=== PATIENT | male | born 1960 | race African-American/Black ===

== ENCOUNTER → 2016-12-28 | Outpatient (CLI) | payer BC ==
[2016-12-28 10:43] LABS: EKG EKG PERFORMED
[2016-12-28 11:10] LABS: Basophils % (A) 1 %; CH 29.3; CHCM 33.8; Eosinophils # (A) 0.1 k/uL (0-0.7); Eosinophils % (A) 1 %; HCT 49.8 % (39.0-53.0); HDW 2.49; HGB 16.2 gm/dL (13.0-17.5); Luc % (Auto) 2; Lymphocytes # (A) 2.6 k/uL (1.0-4.8); Lymphocytes % (A) 44 %; MCH 28.3 pg (25.0-35.0); MCHC 32.6 g/dL (31.0-37.0); Mean Platelet Volume 8.4; Monocytes # (A) 0.3 k/uL (0-1.0); Monocytes % (A) 6 %; Neutrophils # (A) 2.9 k/uL (1.3-7.7); Neutrophils % (A) 48 %; RBC 5.73 m/uL (4.30-5.90); RDW 12.6 % (11.5-15.5); WBC 6.1 k/uL (3.8-10.6); WBC (Perox) 6.03
[2016-12-28 11:15] LABS: Anion Gap 13 mmol/L; Carbon Dioxide 27 mmol/L (22-30); Chloride 106 mmol/L (98-107); Potassium 4.3 mmol/L (3.5-5.1); Sodium 146 mmol/L (137-145)
== END | disposition home or self-care (01) ==
LOC: LABPAT 10:26
PROVIDERS: ATTEND Orthopaedic Surgery
DX: Z01.810 Encounter for preprocedural cardiovascular examination (principal); M75.42 Impingement syndrome of left shoulder
CPT/HCPCS: 80051; 85025; 93005

== ENCOUNTER 2016-12-31 05:59 | Day surgery (SDC) | payer BC ==
[2016-12-28 09:55] VITALS: BMI 29.4
--- NOTE | 2016-12-30 16:36 | HP ---
DATE OF ADMISSION: 12/31/2016 Samy Kim is a 56-year-old patient seen with progressive left shoulder pain. After having treatment options discussed, he elected to proceed with left shoulder arthroscopy. Consent regarding the procedure was obtained. PAST MEDICAL HISTORY: 1. Hss-hdcpees-[id number] diabetes. 2. Gastroesophageal reflux disease. 3. Hypercholesterolemia. PAST SURGICAL HISTORY: Knee arthroscopy. DAILY MEDICATIONS: 1. Actos. 2. Glipizide. 3. Lipitor. 4. Nexium. ALLERGIES: NONE. SOCIAL HISTORY: Patient denies tobacco use. PHYSICAL EVALUATION OF THE LEFT SHOULDER: Flexion is 90 degrees, abduction 70 degrees, external rotation 25 degrees with some weakness. There is tenderness along the anterolateral acromion and rotator cuff insertion site. Impingement is positive at 70 degrees. Distal neurovascular exam is intact. Radiographs of the left shoulder revealed a type II anterior acromion. An MRI of the left shoulder revealed impingement with possible labral tear as well as osteoarthritic changes. IMPRESSION: Left shoulder impingement with labral tear, possible rotator cuff tear. PLAN: Left shoulder arthroscopy with subacromial decompression, possible arthroscopic rotator cuff repair and debridement.
[~2016-12-31 05:59] MED LIST: DEXAMETHASONE SOD PHOSPHATE 10 MG/ML 1 ML VIAL IV ONE; HYDROmorphone 1 MG/ML 1 ML SYRINGE IVP PRN; LACTATED RINGERS 1,000 ML IV SCH; MIDAZOLAM 2 MG/2 ML VIAL IV PRN; ONDANSETRON 4 MG/2 ML VIAL IVP ONE; ceFAZolin 2 GM in SODIUM CHLORIDE 0.9% 100 ML IVPB ONE
[2016-12-31] MEDS ORDERED: LIDOCAINE 1% 20 ML VIAL (10MG/ML) FOR IV START INTRADERMA ONE (06:31)
[2016-12-31 06:55] LABS: Glucose,Whole Blood 144 mg/dL (75-99)
[2016-12-31] MEDS ORDERED: ROCURONIUM BROMIDE 10 MG/ML 10 ML VIAL IV ONE (07:23)
[2016-12-31] MEDS ORDERED: NEOSTIGMINE 1 MG/ML 10 ML VIAL ONE (07:23)
[2016-12-31] MEDS ORDERED: fentaNYL (PF) 50 MCG/ML 2 ML AMP ONE (07:23)
[2016-12-31] MEDS ORDERED: MIDAZOLAM 2 MG/2 ML VIAL ONE (07:23)
[2016-12-31] MEDS ORDERED: PROPOFOL 10 MG/ML 20 ML VIAL IV ONE (07:23)
[2016-12-31] MEDS ORDERED: GLYCOPYRROLATE 0.2 MG/ML 2 ML VIAL ONE (07:23)
[2016-12-31] MEDS ORDERED: LIDOCAINE 1% INJ 10MG/ML (20 ML MDV) ONE (07:23)
[2016-12-31] MEDS ORDERED: LACTATED RINGERS 1,000 ML IV ONE ×2 (08:45→09:10)
[2016-12-31 09:06] VITALS: TEMP 97.4
--- NOTE | 2016-12-31 09:13 | P.OP ---
Date of Procedure: 12/31/16 Preoperative Diagnosis: Left shoulder impingement Postoperative Diagnosis: 1. Left shoulder rotator cuff tear 2. Left shoulder impingement 3. Left shoulder partial biceps tendon tear 4. Left shoulder superficial labral tear Procedure(s) Performed: 1. Left shoulder arthroscopic rotator cuff repair 2. Left shoulder arthroscopic subacromial decompression 3. Left shoulder arthroscopic biceps tenotomy 4. Left shoulder arthroscopic debridement labral tear Implants: 1-valeris peek anchor Anesthesia: GETA, regional (Interscalene block) Surgeon: Seun Tesfaye Retail Selling Specialist #1: Michael Otero Estimated Blood Loss (ml): 10 Pathology: none sent Condition: stable Disposition: PACU Indications for Procedure: 56-year-old patient seen with progressive left shoulder pain. After having treatment options discussed, he elected to proceed with left shoulder arthroscopy. Operative Findings: See description of procedure Description of Procedure: Patient underwent a shoulder block by department of anesthesia. The patient was then taken to the operative suite. The patient underwent a general anesthetic by the department of anesthesia. The patient was placed into a lateral position and secured. There was appropriate padding of the bony prominence. Left shoulder was then prepped and draped in normal sterile orthopedic fashion. We placed the extremity in 10 pounds of longitudinal traction. A posterior incision was now made for a posterior working portal site. The trocar and cannula were inserted into the glenohumeral joint. Arthroscopy was initiated. Spinal needle was now inserted anteriorly, to ascertain the anterior working portal site. An incision was now made in that area, a trocar was inserted followed by a probe. There was partial tearing long head biceps tendon with some hyperemia present. Superficial tearing of the superior and anterior labrum. Mild grade 1 chondromalacia changes of the glenoid with no osteochondral tears present. No loose bodies. An arthroscopic biceps tenotomy was performed. I debrided the superficial labral tear down to stable tissue. The residual labrum was probed and found to be stable. Instruments were now removed from glenohumeral joint. Utilizing the posterior working portal site, the trocar and cannula were inserted into the subacromial space. Arthroscopy initiated. I made an incision 2 fingerbreadths lateral to the acromion. I introduced my trocar followed by my ArthroCare ablator. I now began ablating thick subacromial bursal tissue, which exposed the undersurface of the anterior acromion. This was diminished subacromial space. There was a very prominent anterior acromion. A motorized bur was introduced and a subacromial decompression was performed. I also excised some osteophytes off the inferior aspect of the distal clavicle. The AC joint was visualized and noted to be moderately arthritic. I did not think enough toward a Juan Luis procedure. I turned my attention towards rotator cuff tendon. There was some significant partial tearing along the distal supraspinatus area. Once I debrided that down to stable tissue there was a perforation. I now debrided the margins getting down to stable tendon tissue. I ended up with about a 1.5 cm defect. Margins were stable. I abraded the footprint with a motorized bur. I passed 2 everted mattress sutures through good bites of rotator cuff tendon along with one single suture loop posteriorly. I now repaired the tendon with one single 4.5 mm peek anchor compressing the tendon along the bone very nicely. The residual suture limbs were clipped. The repair was probed and found to be stable. I injected 1 mL Allogen into the glenohumeral joint. Instruments now removed from the portal sites. All portal sites were approximated with nylon suture. Sterile dressings were applied followed by a shoulder immobilizer. Michael FLANAGAN assisted with the procedure. The patient was awakened, transferred to a bed, and taken to recovery in stable condition.
[2016-12-31 09:42] LABS: Glucose,Whole Blood 149 mg/dL (75-99)
[2016-12-31 10:16] LABS: Glucose,Whole Blood 154 mg/dL (75-99)
[2016-12-31 10:22] VITALS: BP 118/76; PULSE 74; RESP 16
== END 2016-12-31 10:57 | disposition home or self-care (01) ==
LOC: OR 05:59
PROVIDERS: ATTEND Orthopaedic Surgery
DX: M75.42 Impingement syndrome of left shoulder (principal); S46.112A Strain of muscle, fascia and tendon of long head of biceps, left arm, initial encounter; X58.XXXA Exposure to other specified factors, initial encounter; S43.402A Unspecified sprain of left shoulder joint, initial encounter; E78.5 Hyperlipidemia, unspecified; E11.9 Type 2 diabetes mellitus without complications; Z79.4 Long term (current) use of insulin; Z79.84 Long term (current) use of oral hypoglycemic drugs; K21.9 Gastro-esophageal reflux disease without esophagitis; Z79.899 Other long term (current) drug therapy; M25.712 Osteophyte, left shoulder
CPT/HCPCS: 64415; 29826; 29827; C1713; J2250; J1100; J2710; J0690; J2405; J2001; J3010; J2704

== ENCOUNTER 2017-04-08 08:21 | Day surgery (SDC) | payer BC ==
[2017-04-05 15:07] VITALS: BMI 29.1
--- NOTE | 2017-04-07 19:35 | HP ---
DATE OF ADMISSION: 04/08/2017 Samy Kim is a 57-year-old patient seen with left shoulder adhesive capsulitis after previously having undergone left shoulder arthroscopy. We discussed options. He elected to proceed with manipulation under anesthesia of left shoulder with steroid injection. Consent was obtained. PAST MEDICAL HISTORY: 1. [id number]-mexljeqwp diabetes. 2. Gastroesophageal reflux disease. 3. Hyperlipidemia. PAST SURGICAL HISTORY: Left shoulder arthroscopy. DAILY MEDICATIONS: 1. Actos. 2. Glipizide. 3. Lipitor. 4. Nexium. ALLERGIES: NONE REPORTED. SOCIAL HISTORY: Patient denies tobacco use. PHYSICAL EVALUATION OF THE LEFT SHOULDER: Previous arthroscopic portal sites appear well healed. Flexion 70 degrees. Abduction 60 degrees. External rotation is 0 degrees. Distal neurovascular exam is intact. Left shoulder radiographs revealed conversion to flat anterior acromion. IMPRESSION: 1. Left shoulder adhesive capsulitis. 2. History of left shoulder arthroscopy. PLAN: Left shoulder manipulation under anesthesia with steroid injection.
[~2017-04-08 08:21] MED LIST changes: -HYDROmorphone 1 MG/ML 1 ML SYRINGE IVP PRN; -LACTATED RINGERS 1,000 ML IV SCH; +LIDOCAINE 1% 20 ML VIAL (10MG/ML) FOR IV START INTRADERMA PRN; +SCOPOLAMINE 1.5MG/72HR PATCH TRANSDERM ONE; +ceFAZolin 1,000 MG in DEXTROSE/WATER 1 50ML.BAG IV ONE; -ceFAZolin 2 GM in SODIUM CHLORIDE 0.9% 100 ML IVPB ONE
[2017-04-08] MEDS: LACTATED RINGERS 1,000 ML IV SCH ×2 (08:52→09:29)
[2017-04-08 09:07] LABS: Glucose,Whole Blood 123 mg/dL (75-99)
[2017-04-08] MEDS ORDERED: KETOROLAC 30 MG/ML 1 ML VIAL ONE (09:34)
[2017-04-08] MEDS ORDERED: MIDAZOLAM 2 MG/2 ML VIAL ONE (09:34)
[2017-04-08] MEDS ORDERED: PROPOFOL 10 MG/ML 20 ML VIAL IV ONE (09:34)
[2017-04-08] MEDS ORDERED: fentaNYL (PF) 50 MCG/ML 2 ML AMP ONE (09:34)
[2017-04-08] MEDS ORDERED: LIDOCAINE 1% INJ 10MG/ML (20 ML MDV) ONE (09:34)
[2017-04-08] MEDS ORDERED: BUPIVACAIN-EPI 0.25%-1:200,000 30 ML VIAL INTRAARTIC ONE (09:40)
[2017-04-08] MEDS ORDERED: methylPREDNISolone ACETATE 80 MG/ML 1 ML VIAL INTRAARTIC ONE (09:40)
--- NOTE | 2017-04-08 09:49 | P.OP ---
Date of Procedure: 04/08/17 Preoperative Diagnosis: Left shoulder adhesive capsulitis Postoperative Diagnosis: Left shoulder adhesive capsulitis Procedure(s) Performed: Manipulation under anesthesia left shoulder with steroid injection Implants: Anesthesia: MAC Surgeon: Seun Tesfaye Estimated Blood Loss (ml): 0 Pathology: none sent Condition: stable Disposition: PACU Indications for Procedure: 57-year-old patient seen with left shoulder stiffness after having previously undergone arthroscopic surgery. We discussed options and he elected to proceed with recommendation of manipulation under anesthesia left shoulder with steroid injection. Consent was obtained. Operative Findings: See description of procedure Description of Procedure: The patient was taken to monitored anesthesia care. The patient underwent anesthesia by the department of anesthesia. Once sufficient analgesia/ anesthesia was noted I performed a manipulation of the left shoulder achieving near full range of motion. The anterior aspect the left shoulder prepped and draped in the normal sterile orthopedic fashion. I injected 1 mL Depo-Medrol with 3 mL quarter percent plain Marcaine under sterile technique. A sterile Band-Aid was applied. The patient was awakened having entire procedure well.
[2017-04-08] MEDS ORDERED: HYDROmorphone 1 MG/ML 1 ML SYRINGE IVP ONE (09:53)
[2017-04-08] MEDS: HYDROmorphone 1 MG/ML 1 ML SYRINGE IVP PRN ×3 (10:03→10:24)
[2017-04-08 10:27] VITALS: TEMP 98.9
[2017-04-08 10:51] LABS: Glucose,Whole Blood 166 mg/dL (75-99)
[2017-04-08] MEDS ORDERED: LACTATED RINGERS 1,000 ML IV ONE (10:55)
[2017-04-08] MEDS ORDERED: HYDROcodone/APAP 7.5-325MG 1 EACH TAB PO ONE (11:33)
[2017-04-08 11:37] VITALS: RESP 18
[2017-04-08 11:49] VITALS: BP 135/96; PULSE 67
== END 2017-04-08 12:14 | disposition home or self-care (01) ==
LOC: OR 08:21
PROVIDERS: ATTEND Orthopaedic Surgery
DX: M75.02 Adhesive capsulitis of left shoulder (principal); E11.9 Type 2 diabetes mellitus without complications; Z79.4 Long term (current) use of insulin; Z79.84 Long term (current) use of oral hypoglycemic drugs; K21.9 Gastro-esophageal reflux disease without esophagitis; E78.5 Hyperlipidemia, unspecified; H40.9 Unspecified glaucoma; Z79.899 Other long term (current) drug therapy
CPT/HCPCS: 23700; 20610; J2250; J1040; J1100; J2405; J2001; J3010; J1885; J1170; J2704

== ENCOUNTER → 2017-05-11 | Day surgery (SDC) | payer BC ==
[2017-05-10 08:22] VITALS: BMI 29.8
[~2017-05-11] MED LIST changes: -DEXAMETHASONE SOD PHOSPHATE 10 MG/ML 1 ML VIAL IV ONE; +LACTATED RINGERS 1,000 ML IV SCH; -LIDOCAINE 1% 20 ML VIAL (10MG/ML) FOR IV START INTRADERMA PRN; -MIDAZOLAM 2 MG/2 ML VIAL IV PRN; -ONDANSETRON 4 MG/2 ML VIAL IVP ONE; +PROPOFOL 10 MG/ML 20 ML VIAL IV ONE; -SCOPOLAMINE 1.5MG/72HR PATCH TRANSDERM ONE; -ceFAZolin 1,000 MG in DEXTROSE/WATER 1 50ML.BAG IV ONE
[2017-05-11 08:48] VITALS: TEMP 98.1
[2017-05-11 08:58] LABS: Glucose,Whole Blood 111 mg/dL (75-99)
--- NOTE | 2017-05-11 09:26 | P.GSHP ---
History of Present Illness H&P Date: 05/11/17 Chief Complaint: Screening colonoscopy This is a 57-year-old male who presents today for screening colonoscopy. Patient denies any subjective complaints. His last colonoscopy was proximal and 10 years ago. Past Medical History Past Medical History: Diabetes Mellitus, GERD/Reflux, Hyperlipidemia Additional Past Medical History / Comment(s): GLAUCOMA History of Any Multi-Drug Resistant Organisms: None Reported Past Surgical History: Orthopedic Surgery Additional Past Surgical History / Comment(s): LEFT SHOULDER SX, LEFT KNEE ARTHROSCOPIC X2, left shoulder surgery Past Anesthesia/Blood Transfusion Reactions: No Reported Reaction Smoking Status: Never smoker - Past Family History Mother Family Medical History: Cancer Additional Family Medical History / Comment(s): LUNG CANCER Father Family Medical History: Cancer Additional Family Medical History / Comment(s): PROSTATE CANCER Medications and Allergies Home Medications Medication Instructions Recorded Confirmed Type Atorvastatin Calcium [Lipitor] 20 mg PO DAILY 12/28/16 05/11/17 History Cholecalciferol [Vitamin D3] 2,000 unit PO DAILY 12/28/16 05/11/17 History Dapagliflozin Propanediol [Farxiga] 10 mg PO DAILY 12/28/16 05/11/17 History Esomeprazole Magnesium [NexIUM] 40 mg PO DAILY 12/28/16 05/11/17 History Fish Oil/Dha/Epa [Fish Oil 1,200 1 each PO DAILY 12/28/16 05/11/17 History mg Fish Oil] Flaxseed Oil [[place]-3 Flaxseed Oil] 1,000 mg PO DAILY 12/28/16 05/11/17 History Insulin Detemir [Levemir Flextouch] 23 units SQ HS 12/28/16 05/11/17 History Repaglinide [Prandin] 2 mg PO TID 12/28/16 05/11/17 History Travoprost [Travatan Z 0.004%] 1 drop BOTH EYES HS 12/28/16 05/11/17 History Allergies Allergy/AdvReac Type Severity Reaction Status Date / Time No Known Allergies Allergy Verified 05/11/17 08:45 Surgical - Exam Vital Signs Temp Pulse BP Pulse Ox 98.1 F 74 141/85 96 05/11/17 08:47 05/11/17 08:47 05/11/17 08:47 05/11/17 08:47 - General well developed, no distress - Eyes PERRL - ENT normal pinna - Neck no masses - Respiratory normal expansion - Cardiovascular Rhythm: regular - Abdomen Abdomen: soft, non tender Results - Labs Abnormal Lab Results - Last 24 Hours (Table) 05/11/17 Range/Units 08:55 POC Glucose (mg/dL) 111 H (75-99) mg/dL Assessment and Plan Plan: We'll perform screening colonoscopy.
--- NOTE | 2017-05-11 09:43 | P.OP ---
Date of Procedure: 05/11/17 Preoperative Diagnosis: Screening colonoscopy Postoperative Diagnosis: Rectal polyp Procedure(s) Performed: Colonoscopy Implants: Anesthesia: MAC Surgeon: Emmett Toussaint Pathology: other (Rectal polyp) Condition: stable Disposition: PACU Indications for Procedure: Operative Findings: Description of Procedure: The patient's placed on the endoscopy table lateral position. He received IV sedation. Digital rectal exam was performed which revealed no abnormalities. The flexible colonoscope was then placed patient anus passed throughout the entire colon. The ileocecal valve was visually. The cecum, ascending and transverse colon appeared normal. The descending and sigmoid colon there were no polyps or tumors seen. Scope was then brought back the rectum and a small polyp was seen. This removed the forcep. Scope was withdrawn for patient.
[2017-05-11 10:06] VITALS: BP 123/88; PULSE 65; RESP 18
== END ==
LOC: ORWHC2ENDO 08:23
PROVIDERS: ATTEND Surgery
DX: Z12.11 Encounter for screening for malignant neoplasm of colon (principal); K62.1 Rectal polyp; K21.9 Gastro-esophageal reflux disease without esophagitis; E11.9 Type 2 diabetes mellitus without complications; Z79.4 Long term (current) use of insulin; Z79.84 Long term (current) use of oral hypoglycemic drugs; E78.5 Hyperlipidemia, unspecified; H40.9 Unspecified glaucoma; Z80.42 Family history of malignant neoplasm of prostate; Z79.899 Other long term (current) drug therapy
CPT/HCPCS: 88305; 45380; J2704

== ENCOUNTER → 2017-06-21 | Outpatient (CLI) | payer BC ==
--- NOTE | 2017-06-21 14:41 | MR ---
EXAMINATION TYPE: MR shoulder LT wo con DATE OF EXAM: 06/21/2017 COMPARISON: NONE HISTORY: Left shoulder pain TECHNIQUE: Multiplanar, multisequence imaging of the shoulder is performed without contrast. FINDINGS: Rotator Cuff: There is bursal surface fraying of the supraspinatus muscle with slight increased intri nsic signal at the myotendinous junction of the supraspinatus tendon but no evidence of re-tear. Sing le transcortical anchor is seen at the footplate of the humeral head. Supraspinatus muscle volume is within normal limits with no evidence of atrophy. The infraspinatus, teres minor, and subscapularis muscles are of normal volume and signal intensity. Acromioclavicular Joint: Acromioclavicular joint is unremarkable with no evidence of capsular hypertr ophy, marginal osteophytes or subchondral cysts. There is minimal downsloping of the acromion slightl y impressing upon the supraspinatus with no alteration in signal of the supraspinatus in this region. Glenohumeral Joint: No evidence of joint space narrowing. Small osteophyte projects from the humeral head inferiorly into the glenohumeral joint indicative of early osteoarthritic change. Labrum: The labrum appears grossly intact given limitation of non-arthrogram study although there is signal heterogeneity indicative of glenoid labrum degeneration, particularly of the anterior inferior and anterior superior labrum. Biceps Tendon: The intracapsular portion of the biceps tendon just proximal to the insertion on the b iceps anchor is attenuated although no distinct tear is identified. The extra-articular portion is un remarkable and within the bicipital groove. Bone marrow signal: No focal abnormal marrow signal is appreciated. Other: No additional significant abnormality is appreciated. IMPRESSION: 1. Bursal surface fraying of the supraspinatus muscle and tendinopathy without repair or atrophy. 2. Biceps tendinosis of the intracapsular portion just proximal to the insertion on the biceps anchor . 3. Glenoid labrum degeneration without distinct tear given the limitations of this nonarthrogram stud y.
== END | disposition home or self-care (01) ==
LOC: RADMRIMAIN 13:47
PROVIDERS: ATTEND Orthopaedic Surgery
DX: M67.814 Other specified disorders of tendon, left shoulder (principal); M62.89 Other specified disorders of muscle; M24.212 Disorder of ligament, left shoulder

== ENCOUNTER 2020-06-06 07:39 | Day surgery (SDC) | payer BC, OTHER ==
[2020-06-05 10:11] VITALS: BMI 28.2
[~2020-06-06 07:39] MED LIST changes: -PROPOFOL 10 MG/ML 20 ML VIAL IV ONE
[2020-06-06 08:02] VITALS: TEMP 97.3
[2020-06-06 08:05] LABS: Glucose,Whole Blood 225 mg/dL (75-99)
[2020-06-06] MEDS ORDERED: PROPOFOL 10 MG/ML 20 ML VIAL IV ONE (08:28)
[2020-06-06] MEDS ORDERED: fentaNYL (PF) 50 MCG/ML 2 ML AMP ONE (08:28)
[2020-06-06] MEDS ORDERED: MIDAZOLAM 2 MG/2 ML VIAL ONE (08:28)
--- NOTE | 2020-06-06 08:34 | P.GSHP ---
History of Present Illness H&P Date: 06/06/20 Chief Complaint: History of colon polyps This a 60-year-old male who presents today for colonoscopy. Patient has previous history of colon polyps. Past Medical History Past Medical History: Diabetes Mellitus, Eye Disorder, GERD/Reflux, Hypertension Additional Past Medical History / Comment(s): GLAUCOMA History of Any Multi-Drug Resistant Organisms: None Reported Past Surgical History: Orthopedic Surgery Additional Past Surgical History / Comment(s): LEFT SHOULDER SX, LEFT KNEE ARTHROSCOPIC X2, COLONOSCOPY, BILAT EYE SX FOR GLAUCOMA Past Anesthesia/Blood Transfusion Reactions: No Reported Reaction Smoking Status: Never smoker - Past Family History Mother Family Medical History: Cancer Additional Family Medical History / Comment(s): LUNG CANCER Father Family Medical History: Cancer Additional Family Medical History / Comment(s): PROSTATE CANCER Medications and Allergies Home Medications Medication Instructions Recorded Confirmed Type Atorvastatin Calcium [Lipitor] 20 mg PO DAILY 12/28/16 06/06/20 History Cholecalciferol [Vitamin D3] 2,000 unit PO DAILY 12/28/16 06/06/20 History Dapagliflozin Propanediol [Farxiga] 10 mg PO DAILY 12/28/16 06/06/20 History Esomeprazole Magnesium [NexIUM] 40 mg PO DAILY 12/28/16 06/06/20 History Fish Oil/Dha/Epa [Fish Oil 1,200 1 each PO DAILY 12/28/16 06/06/20 History mg Fish Oil] Flaxseed Oil [[place]-3 Flaxseed Oil] 1,000 mg PO DAILY 12/28/16 06/06/20 History Insulin Detemir [Levemir Flextouch] 46 units SQ HS 12/28/16 06/06/20 History Travoprost [Travatan Z 0.004%] 1 drop BOTH EYES HS 12/28/16 06/06/20 History Allergies Allergy/AdvReac Type Severity Reaction Status Date / Time No Known Allergies Allergy Verified 06/06/20 08:03 Surgical - Exam Vital Signs Temp Pulse Resp BP Pulse Ox 97.3 F L 69 16 124/84 96 06/06/20 07:51 06/06/20 07:51 06/06/20 07:51 06/06/20 07:51 06/06/20 07:51 - General well developed, well nourished, no distress - Eyes PERRL - ENT normal pinna - Neck no masses - Respiratory normal expansion - Cardiovascular Rhythm: regular - Abdomen Abdomen: soft, non tender Results - Labs Abnormal Lab Results - Last 24 Hours (Table) 06/06/20 Range/Units 08:00 POC Glucose (mg/dL) 225 H (75-99) mg/dL Assessment and Plan Assessment: 3 colon polyps. We'll perform colonoscopy.
--- NOTE | 2020-06-06 08:43 | P.OP ---
Date of Procedure: 06/06/20 Preoperative Diagnosis: History: Polyps Postoperative Diagnosis: Mild diverticulosis Procedure(s) Performed: Colonoscopy Anesthesia: MAC Surgeon: Emmett Toussaint Pathology: none sent Condition: stable Disposition: PACU Description of Procedure: The patient's placed on the endoscopy table lateral position. He received IV sedation. Digital rectal exam performed which revealed no. The flexible colonoscope was then placed patient anus passed rotator colon. Ileocecal valve was visualized. Cecum, ascending and transverse colon appeared normal. In the descending sigmoid mild diverticular changes. The scope summer back the rectum this.. Scope was withdrawn for patient. There is no evidence of any colonic polyps.
[2020-06-06 08:58] LABS: Glucose,Whole Blood 220 mg/dL (75-99)
[2020-06-06 09:21] VITALS: BP 116/79; PULSE 58; RESP 16
== END 2020-06-06 09:28 | disposition home or self-care (01) ==
LOC: ORWHC2ENDO 07:39
PROVIDERS: ATTEND Surgery
DX: Z12.11 Encounter for screening for malignant neoplasm of colon (principal); K57.30 Diverticulosis of large intestine without perforation or abscess without bleeding; Z86.010 Personal history of colon polyps; E11.9 Type 2 diabetes mellitus without complications; I10 Essential (primary) hypertension; K21.9 Gastro-esophageal reflux disease without esophagitis; H40.9 Unspecified glaucoma; Z98.890 Other specified postprocedural states; Z79.899 Other long term (current) drug therapy; Z79.4 Long term (current) use of insulin; Z87.11 Personal history of peptic ulcer disease; Z80.1 Family history of malignant neoplasm of trachea, bronchus and lung; Z80.42 Family history of malignant neoplasm of prostate
CPT/HCPCS: J2250; J3010; J2704; G0105

== ENCOUNTER 2023-02-24 16:14 | Inpatient (IN) | payer OTHER ==
[2023-02-24] MEDS ORDERED: SODIUM CHLORIDE 0.9% 1,000 ML IV STA (16:53)
[2023-02-24 17:03] LABS: Basophils # (A) 0.1 k/uL (0-0.2); Basophils % (A) 0 %; Eosinophils # (A) 0.2 k/uL (0-0.7); Eosinophils % (A) 2 %; HCT 49.7 % (39.0-53.0); Lymphocytes % (A) 44 %; MCH 31.2 pg (25.0-35.0); MCHC 34.3 g/dL (31.0-37.0); MCV 90.9 fL (80.0-100.0); Mean Platelet Volume 8.6; Monocytes # (A) 0.5 k/uL (0-1.0); Monocytes % (A) 4 %; Neutrophils # (A) 6.8 k/uL (1.3-7.7); Neutrophils % (A) 49 %; Platelet Count 204 k/uL (150-450); RBC 5.47 m/uL (4.30-5.90); RDW 12.6 % (11.5-15.5); WBC 13.8 k/uL (3.8-10.6)
[2023-02-24 17:13] LABS: Prothrombin Time 10.8 sec (9.0-12.0)
[2023-02-24 17:13] LABS: Glucose,Whole Blood 170 mg/dL (70-110)
--- NOTE | 2023-02-24 17:22 | ED ---
Neuro HPI - General Chief Complaint: Neuro Symptoms/Deficit Stated Complaint: poss stroke/sent from dr office Time Seen by Provider: 02/24/23 16:52 Source: patient, RN notes reviewed, old records reviewed Mode of arrival: wheelchair Limitations: no limitations - History of Present Illness Is the patient presenting with stroke symptoms?: Yes Onset/Timin -: days(s) Initial Comments: This is a 63-year-old male DF for evaluation patient began with neurological complaint noticed by family and himself on Wednesday. Patient had some slurred speech likely facial droop or some facial asymmetry. They wanted patient to come the hospital then he would not he does present today after seeing his primary care. Patient has no new neurological symptoms, arms and legs are working appropriately walking appropriately no dizziness no headache no trauma. Patient does admit to slurred speech Location: left face, dysarthria History of same: Yes Place: home Severity: mild Quality: weak, numb, tingling Improves With: none Worsens With: none Context: gradual onset Associated Symptoms: denies other symptoms Treatments Prior to Arrival: none - Related Data Home Medications: Home Medications Medication Instructions Recorded Confirmed Esomeprazole Magnesium [NexIUM] 40 mg PO DAILY 12/28/16 02/24/23 Repaglinide [Prandin] 2 mg PO TID 02/24/23 02/24/23 Previous Rx's Medication Instructions Recorded Aspirin 81 mg PO DAILY #30 tab 02/27/23 Atorvastatin [Lipitor] 40 mg PO DAILY #40 tab 02/27/23 Ticagrelor [Brilinta] 90 mg PO BID 21 Days #42 tab 02/27/23 Allergies/Adverse Reactions: Allergies Allergy/AdvReac Type Severity Reaction Status Date / Time No Known Allergies Allergy Verified 02/24/23 19:04 Review of Systems ROS Statement: Those systems with pertinent positive or pertinent negative responses have been documented in the HPI. ROS Other: All systems not noted in ROS Statement are negative. General Exam - General Exam Comments Initial Comments: NIH of 1 Limitations: no limitations General appearance: alert, in no apparent distress Head exam: Present: atraumatic, normocephalic, normal inspection Eye exam: Present: normal appearance, PERRL, EOMI. Absent: scleral icterus, conjunctival injection, periorbital swelling ENT exam: Present: normal exam, mucous membranes moist Neck exam: Present: normal inspection. Absent: tenderness, meningismus, lymphadenopathy Respiratory exam: Present: normal lung sounds bilaterally. Absent: respiratory distress, wheezes, rales, rhonchi, stridor Cardiovascular Exam: Present: normal rhythm, bradycardia, normal heart sounds. Absent: systolic murmur, diastolic murmur, rubs, gallop, clicks GI/Abdominal exam: Present: soft, normal bowel sounds. Absent: distended, tenderness, guarding, rebound, rigid Extremities exam: Present: normal inspection, full ROM, normal capillary refill. Absent: tenderness, pedal edema, joint swelling, calf tenderness Back exam: Present: normal inspection Neurological exam: Present: alert, oriented X3, CN II-XII intact Psychiatric exam: Present: normal affect, normal mood Skin exam: Present: warm, dry, intact, normal color. Absent: rash Stroke MDM - Lab Data Result diagrams: 02/25/23 08:26 02/27/23 09:27 Lab Results 02/24/23 02/24/23 02/24/23 Range/Units 16:59 16:59 16:59 WBC 13.8 H (3.8-10.6) k/uL RBC 5.47 (4.30-5.90) m/uL Hgb 17.0 (13.0-17.5) gm/dL Hct 49.7 (39.0-53.0) % MCV 90.9 (80.0-100.0) fL MCH 31.2 (25.0-35.0) pg MCHC 34.3 (31.0-37.0) g/dL RDW 12.6 (11.5-15.5) % Plt Count 204 (150-450) k/uL MPV 8.6 Neutrophils % 49 % Lymphocytes % 44 % Monocytes % 4 % Eosinophils % 2 % Basophils % 0 % Neutrophils # 6.8 (1.3-7.7) k/uL Lymphocytes # 6.0 H (1.0-4.8) k/uL Monocytes # 0.5 (0-1.0) k/uL Eosinophils # 0.2 (0-0.7) k/uL Basophils # 0.1 (0-0.2) k/uL Manual Slide Review Performed RBC Morphology Normal PT 10.8 (9.0-12.0) sec INR 1.0 (<1.2) APTT 24.0 (22.0-30.0) sec Sodium 137 (137-145) mmol/L Potassium 4.0 (3.5-5.1) mmol/L Chloride 104 (98-107) mmol/L Carbon Dioxide 21 L (22-30) mmol/L Anion Gap 12 mmol/L BUN 14 (9-20) mg/dL Creatinine 1.33 H (0.66-1.25) mg/dL Est GFR (CKD-EPI)AfAm 66 (>60 ml/min/1.73 sqM) Est GFR (CKD-EPI)NonAf 57 (>60 ml/min/1.73 sqM) Glucose 178 H (74-99) mg/dL POC Glucose (mg/dL) (70-110) mg/dL POC Glu Bag Cutter ID Calcium 10.3 H (8.4-10.2) mg/dL Total Bilirubin 0.8 (0.2-1.3) mg/dL AST 29 (17-59) U/L ALT 41 (4-49) U/L Alkaline Phosphatase 75 (38-126) U/L Troponin I (0.000-0.034) ng/mL Total Protein 8.0 (6.3-8.2) g/dL Albumin 4.7 (3.5-5.0) g/dL Blood Type Blood Type Confirm Blood Type Recheck Bld Type Recheck Status Antibody Screen Spec Expiration Date 02/24/23 02/24/23 02/24/23 Range/Units 16:59 17:10 17:10 WBC (3.8-10.6) k/uL RBC (4.30-5.90) m/uL Hgb (13.0-17.5) gm/dL Hct (39.0-53.0) % MCV (80.0-100.0) fL MCH (25.0-35.0) pg MCHC (31.0-37.0) g/dL RDW (11.5-15.5) % Plt Count (150-450) k/uL MPV Neutrophils % % Lymphocytes % % Monocytes % % Eosinophils % % Basophils % % Neutrophils # (1.3-7.7) k/uL Lymphocytes # (1.0-4.8) k/uL Monocytes # (0-1.0) k/uL Eosinophils # (0-0.7) k/uL Basophils # (0-0.2) k/uL Manual Slide Review RBC Morphology PT (9.0-12.0) sec INR (<1.2) APTT (22.0-30.0) sec Sodium (137-145) mmol/L Potassium (3.5-5.1) mmol/L Chloride (98-107) mmol/L Carbon Dioxide (22-30) mmol/L Anion Gap mmol/L BUN (9-20) mg/dL Creatinine (0.66-1.25) mg/dL Est GFR (CKD-EPI)AfAm (>60 ml/min/1.73 sqM) Est GFR (CKD-EPI)NonAf (>60 ml/min/1.73 sqM) Glucose (74-99) mg/dL POC Glucose (mg/dL) 170 H (70-110) mg/dL POC Glu Bag Cutter ID Koffi Vitale Calcium (8.4-10.2) mg/dL Total Bilirubin (0.2-1.3) mg/dL AST (17-59) U/L ALT (4-49) U/L Alkaline Phosphatase (38-126) U/L Troponin I <0.012 (0.000-0.034) ng/mL Total Protein (6.3-8.2) g/dL Albumin (3.5-5.0) g/dL Blood Type B Positive Blood Type Confirm Blood Type Recheck No Previous Record Bld Type Recheck Status CABO Indicated Antibody Screen NEGATIVE Spec Expiration Date 02/27/2023 - 230902/24/23 Range/Units 18:41 WBC (3.8-10.6) k/uL RBC (4.30-5.90) m/uL Hgb (13.0-17.5) gm/dL Hct (39.0-53.0) % MCV (80.0-100.0) fL MCH (25.0-35.0) pg MCHC (31.0-37.0) g/dL RDW (11.5-15.5) % Plt Count (150-450) k/uL MPV Neutrophils % % Lymphocytes % % Monocytes % % Eosinophils % % Basophils % % Neutrophils # (1.3-7.7) k/uL Lymphocytes # (1.0-4.8) k/uL Monocytes # (0-1.0) k/uL Eosinophils # (0-0.7) k/uL Basophils # (0-0.2) k/uL Manual Slide Review RBC Morphology PT (9.0-12.0) sec INR (<1.2) APTT (22.0-30.0) sec Sodium (137-145) mmol/L Potassium (3.5-5.1) mmol/L Chloride (98-107) mmol/L Carbon Dioxide (22-30) mmol/L Anion Gap mmol/L BUN (9-20) mg/dL Creatinine (0.66-1.25) mg/dL Est GFR (CKD-EPI)AfAm (>60 ml/min/1.73 sqM) Est GFR (CKD-EPI)NonAf (>60 ml/min/1.73 sqM) Glucose (74-99) mg/dL POC Glucose (mg/dL) (70-110) mg/dL POC Glu Bag Cutter ID Calcium (8.4-10.2) mg/dL Total Bilirubin (0.2-1.3) mg/dL AST (17-59) U/L ALT (4-49) U/L Alkaline Phosphatase (38-126) U/L Troponin I (0.000-0.034) ng/mL Total Protein (6.3-8.2) g/dL Albumin (3.5-5.0) g/dL Blood Type Blood Type Confirm B Positive Blood Type Recheck Bld Type Recheck Status Antibody Screen Spec Expiration Date - NIH Stroke Scale 1a. Level of Consciousness: (0) alert 1b. LOC Questions: (0) answers correctly 1c. LOC Commands: (0) performs tasks correctly 2. Best Gaze: (0) normal 3. Visual: (0) no visual loss 4. Facial Palsy: (1) minor paralysis 5a. Motor Arm Left: (0) no drift 5b. Motor Arm Right: (0) no drift 6a. Motor Leg Left: (0) no drift 6b. Motor Leg Right: (0) no drift 7. Limb Ataxia: (0) absent 8. Sensory: (0) normal 9. Best Language: (1) mild/moderate aphasia 10. Dysarthria: (0) normal 11. Extinction/Inattention: (0) no abnormality - Thrombolytic Inclusion/Exclusion Thrombolytic Exclusion Criteria: Symptom Onset > 4.5 Hours - Medical Decision Making 63 male to the emergency department for days post likely acute CVA no significant finding on CT of his head CT angios had neck. Patient does have persistent symptoms including some slurred speech and left-sided facial droop. Patient will be admitted for neurological consult evaluation given aspirin - Radiology Data Radiology results: report reviewed (CT brain CT head neck is negative for acute disease), image reviewed - EKG Data -: EKG Interpreted by Me (EKG is sinus 86 SC 138 QRS 139 QTC 439) Past Medical History Past Medical History: Diabetes Mellitus, Eye Disorder, GERD/Reflux, Hypertension Additional Past Medical History / Comment(s): GLAUCOMA History of Any Multi-Drug Resistant Organisms: None Reported Past Surgical History: Orthopedic Surgery Additional Past Surgical History / Comment(s): LEFT SHOULDER SX, LEFT KNEE ARTHROSCOPIC X2, COLONOSCOPY, BILAT EYE SX FOR GLAUCOMA Past Anesthesia/Blood Transfusion Reactions: No Reported Reaction Past Psychological History: No Psychological Hx Reported Smoking Status: Never smoker Past Alcohol Use History: Occasional Past Drug Use History: None Reported - Past Family History Mother Family Medical History: Cancer Additional Family Medical History / Comment(s): LUNG CANCER Father Family Medical History: Cancer Additional Family Medical History / Comment(s): PROSTATE CANCER Course Vital Signs 02/24/23 02/24/23 04 16:18 19:19 02:16 Temperature 98.2 F Pulse Rate 48 L 50 L 79 Respiratory 18 18 18 Rate Blood Pressure 184/80 145/90 131/87 O2 Sat by Pulse 97 98 98 Oximetry - Reevaluation(s) Reevaluation #1: 02/24/23 23:36 Medical record is reviewed No code stroke was paged at secondary to symptoms starting on Wednesday 3 days ago, not a candidate for TPA Reevaluation #2: 02/24/23 23:36 No improvement in symptoms here in the ER Reevaluation #3: 02/24/23 23:36 Patient informed results and questions answered Reevaluation #4: 02/24/23 23:36 Was pt. sent in by a medical professional or institution? @ -yes patient signed in by PCP Did you speak to anyone other than the patient for history? @ -daughter noticed neuro symptoms wednesday Did you review nursing and triage notes? @ -agree Were old charts reviewed? @ -no Differential Diagnosis? @ -neuro deficits EKG interpreted by me (3pts min.)? @ -yes X-rays interpreted by me (1pt min.)? @ -no CT interpreted by me (1pt min.)? @ -no U/S interpreted by me (1pt. min.)? @ -no What testing was considered but not performed? (CT, X-rays, U/S, labs)? Why? @ -no What meds were considered but not given? Why? @ -no Did you discuss the management of the patient with other professionals? @ -no Did you reconcile home meds? @ -yes Was smoking cessation discussed for >3mins.? @ -no Was critical care preformed (if so, how long)? @ -no Were there social determinants of health that impacted care today? How? (Homelessness, low income, unemployed, alcoholism, drug addiction, transp ortation, low edu. Level, literacy, decrease access to med. care, halfway, rehab)? @ -no Was there de-escalation of care discussed even if they declined? (Discuss DNR or withdrawal of care, Hospice)? @ -no What co-morbidities impacted this encounter? (DM, HTN, Smoking, COPD, CAD, Cancer, CVA, Hep., AIDS, mental health diagnosis, sleep apnea, morbid obesity)? @ -no Was patient admitted / discharged? @ -admit Undiagnosed new problem with uncertain prognosis? @ -no Drug Therapy requiring intensive monitoring for toxicity (Heparin, Nitro, Insulin, Cardizem)? @ -no Were any procedures done? @ -no Diagnosis/symptom? @ -CVA Acute, or Chronic, or Acute on Chronic? @ -acute Uncomplicated (without systemic symptoms) or Complicated (systemic symptoms)? @ -uncomplicated Side effects of treatment? @ -no Exacerbation, Progression, or Severe Exacerbation] @ -no Poses a threat to life or bodily function? @ -yes 02/27/23 16:37 Reevaluation #5: 02/24/23 23:37 MDifferential Weakness: Hypoglycemia, shock, sepsis, hyponatremia, anemia, infection, CA, ETOH, adverse medicine reaction, overdose, stroke, this is not meant to be an all-inclusive list. - Consultations Consultation #1: Spoke with [facility] were agrees to admit this patient Critical Care Time Critical Care Time: Yes Total Critical Care Time: 31 Disposition Clinical Impression: Cerebrovascular accident (CVA) Disposition: ADMITTED IP TO THIS HOSP Condition: Serious Is patient prescribed a controlled substance at d/c from ED?: No Time of Disposition: 21:30
[2023-02-24 17:25] LABS: RBC Morphology Normal
[2023-02-24 17:30] LABS: Albumin 4.7 g/dL (3.5-5.0); Calcium 10.3 mg/dL (8.4-10.2); Total Bilirubin 0.8 mg/dL (0.2-1.3)
--- NOTE | 2023-02-24 18:37 | CT ---
EXAMINATION TYPE: CT brain liz yoder DATE OF EXAM: 02/24/2023 COMPARISON: None HISTORY: Slurred speech, RT side weakness, imbalance, Sent by PCP for possible stroke. NOT called a c ode stroke. CT DLP: 1671.[address] of the brain was performed. The ventricles, basal cisterns and sulci overlying the cerebral convexities demonstrate mild enlargem ent. Tiny focus of decreased attenuation posterior limb of the left internal capsule. There is no evidence for intracranial hemorrhage or sulcal effacement. There is decreased attenuatio n about the periventricular white matter and deep white matter of both cerebral hemispheres, compatib le with chronic small vessel ischemia. No mass effects are seen. If symptoms persist consider MRI. Osseous calvarium is intact. IMPRESSION: 1. Age related atrophic and chronic small vessel ischemic change without acute intracranial process seen at this time. Tiny focus of decreased attenuation posterior limb of the left internal capsule. CT Cervical Spine: Unenhanced CT of the cervical spine was performed with bone and soft tissue window settings submitted . Coronal and sagittal reconstruction is obtained. There is normal alignment and prevertebral soft tissues. No evidence for acute cervical fracture . Scattered degenerative disc disease and spondylosis. Biapical scarring. IMPRESSION: 1. No evidence for acute fracture or subluxation of the cervical spine.
--- NOTE | 2023-02-24 18:42 | CT ---
EXAMINATION TYPE: CT angio head neck DATE OF EXAM: 02/24/2023 COMPARISON: None HISTORY: Slurred speech, RT side weakness, imbalance, Sent by PCP for possible stroke. NOT called a c ode stroke. CT DLP: 675.1 mGycm CONTRAST: Performed with IV Contrast, patient injected with 65 mL of Isovue 370. Combination Contrast CTA cervical carotids and [place] CTA cervical carotids with 3-D recons truction Contrast CTA of the cervical carotids was performed 3-D reconstruction imaging obtained at a separate workstation. Right carotid system: Mild plaque is seen of the right common carotid artery. There is mild plaque a lso noted at the carotid bulb and proximal ICA. No significant diameter reduction. ECA is patent. Right vertebral artery appears unremarkable. Left carotid system: Mild plaque is seen of the left common carotid artery. There is mild plaque als o noted at the carotid bulb and proximal ICA. No significant diameter reduction. ECA is patent. Lef t vertebral artery appears unremarkable. IMPRESSION: 1. No significant diameter reduction to account for the patient's symptoms. CTA [place] with 3-D reconstruction Contrast CTA of the [place] was performed 3-D reconstruction imaging obtained at a separate workstation. Vertebrobasilar system as well as intracranial portions of the internal carotid arteries and their [place] tributaries are patent. I do not see evidence for sizable aneurysm or vascular malformation. Pl ease note MRI provides greater sensitivity and specificity. Visualized brain appears grossly unremar kable. IMPRESSION: 1. No significant abnormality. NASCET criteria was used in interpretation of this exam?
[2023-02-24] MEDS ORDERED: NALOXONE 0.4 MG/ML 1 ML VIAL IV PRN (22:31)
[2023-02-25 06:18] LABS: Glucose,Whole Blood 133 mg/dL (70-110)
[2023-02-25] MEDS: INSULIN ASPART (NovoLOG) 100 UNIT/ML VIAL SQ SCH ×4 (08:16→20:45)
[2023-02-25] MEDS ORDERED: ATORVASTATIN 20 MG TAB PO SCH (09:00)
[2023-02-25] MEDS: DAPAGLIFLOZIN PROPANEDIOL 10 MG TABLET PO SCH (09:04)
[2023-02-25] MEDS: PANTOPRAZOLE 40 MG TABLET PO SCH (09:04)
[2023-02-25 09:15] LABS: Basophils % (A) 0 %; Eosinophils # (A) 0.1 k/uL (0-0.7); Eosinophils % (A) 2 %; HCT 47.4 % (39.0-53.0); HGB 16.4 gm/dL (13.0-17.5); Lymphocytes # (A) 3.2 k/uL (1.0-4.8); Lymphocytes % (A) 41 %; MCH 31.2 pg (25.0-35.0); MCHC 34.5 g/dL (31.0-37.0); MCV 90.5 fL (80.0-100.0); Mean Platelet Volume 8.7; Monocytes # (A) 0.4 k/uL (0-1.0); Monocytes % (A) 5 %; Neutrophils # (A) 3.9 k/uL (1.3-7.7); Neutrophils % (A) 51 %; Platelet Count 172 k/uL (150-450); RBC 5.24 m/uL (4.30-5.90); RDW 13.1 % (11.5-15.5); WBC 7.6 k/uL (3.8-10.6)
[2023-02-25 09:35] LABS: Calcium 9.5 mg/dL (8.4-10.2); Potassium 4.5 mmol/L (3.5-5.1); Total Bilirubin 0.7 mg/dL (0.2-1.3); Total Protein 6.8 g/dL (6.3-8.2)
[2023-02-25] MEDS ORDERED: CLOPIDOGREL 75 MG TAB PO SCH (11:30)
--- NOTE | 2023-02-25 11:35 | P.CNNES ---
History of Present Illness Consult date: 02/25/23 Requesting physician: Nathen Camacho Reason for Consult: cva History of Present Illness: This is a 63-year-old right-handed gentleman with history of diabetes who presented to the emergency department because of speech difficulty as well as right-sided weakness. Patient stated that he has noticed thspeech difficulty since this Wednesday. He stated that he would know what he wants to say but he could not get it out. He feels this patient is getting better. He also noticed right-sided weakness and he thinks it's been going on since the more than this is that the Wednesday and he felt E somewhat dragging his right foot and he feels his coronation over the right hand upper extremity is not as good as the the left even though he is right-handed. So he eventually seen primary care physician and he was notified to come to the ED as a result. He denies being on aspirin or Plavix or any other antiplatelet. Denies any history of atrial fibrillation or flutter. He does have history of diabetes but he states that it's been going on for years but not sure exactly when. He feels its controlled History of stroke or TIA in the past. Otherwise denies of any other neurological issues. She states that he's taking stat in the home and it's Lipitor 20mg daily. Some of the workup during his hospital visit consisted of: CT of the head is reported as age-related atrophy and chronic small vessel ischemic change without acute intracranial process seen at this time. Tiny focus of decreased attenuation posterior limb left internal capsule. I personally reviewed the CT and I feel the hypoattenuation over posterior limb of left internal capsule seems subacute. CT angiography of the head and neck is reported as no significant abnormality. The ED patient scored NIH stroke scale of a 21 for facial and 1 for best language. No IV TPA since the patient is outside the window and the risk outweighed the benefit. Review of Systems Review of system: The 12 point system was reviewed and apparent positive and negative per HPI. Past Medical History Past Medical History: Diabetes Mellitus, Eye Disorder, GERD/Reflux, Hypertension Additional Past Medical History / Comment(s): GLAUCOMA History of Any Multi-Drug Resistant Organisms: None Reported Past Surgical History: Orthopedic Surgery Additional Past Surgical History / Comment(s): LEFT SHOULDER SX, LEFT KNEE ARTHROSCOPIC X2, COLONOSCOPY, BILAT EYE SX FOR GLAUCOMA Past Anesthesia/Blood Transfusion Reactions: No Reported Reaction Past Psychological History: No Psychological Hx Reported Smoking Status: Never smoker Past Alcohol Use History: Occasional Past Drug Use History: None Reported - Past Family History Mother Family Medical History: Cancer Additional Family Medical History / Comment(s): LUNG CANCER Father Family Medical History: Cancer Additional Family Medical History / Comment(s): PROSTATE CANCER Medications and Allergies Home Medications Medication Instructions Recorded Confirmed Type Atorvastatin Calcium [Lipitor] 20 mg PO DAILY 12/28/16 02/24/23 History Dapagliflozin Propanediol [Farxiga] 10 mg PO DAILY 12/28/16 02/24/23 History Esomeprazole Magnesium [NexIUM] 40 mg PO DAILY 12/28/16 02/24/23 History Insulin Degludec [Tresiba 56 units SQ HS 02/24/23 02/24/23 History Flextouch U-200 Pen] Repaglinide [Prandin] 2 mg PO TID 02/24/23 02/24/23 History Allergies Allergy/AdvReac Type Severity Reaction Status Date / Time No Known Allergies Allergy Verified 02/24/23 19:04 Physical Examination - Vital Signs Vital Signs: Vital Signs Temp Pulse Pulse Resp BP BP Pulse Ox 02/25/23 08:55 97.7 F 66 17 127/82 02/25/23 04:32 60 18 02/25/23 04:14 98.2 F 60 18 125/85 02/25/23 02:16 79 18 131/87 98 02/24/23 19:19 50 L 18 145/90 98 02/24/23 16:18 98.2 F 48 L 18 184/80 97 Intake and Output 02/24/23 02/25/23 02/25/23 22:59 06:59 14:59 Intake Total 540 Balance 540 Intake: Oral 540 Other: Voiding Method Toilet Toilet # Voids 0 Weight 94.347 kg 94.347 kg GENERAL: The patient is lying in bed and is not in acute distress. CHEST: The heart rate is regular rate rhythm. No murmurs to auscultation. LUNG: Clear to auscultation bilaterally no wheezing noted throughout. Not labored breathing. ABDOMEN/GI: Bowel sounds present in all 4 quadrants. No tenderness to palpation throughout. NEUROLOGICAL: Higher mental function: The patient is awake, alert, oriented to self, place and time. Patient is following commands. No aphasia and no neglect. Cranial nerves: The pupils are round, equal and reactive to light and accommodation. Visual gonzáles are full to confrontation throughout. Extraocular movement is intact no nystagmus is noted. Facial sensation is normal to touch throughout. The facial strength is subtle right nasolabial flattening. Hearing is normal bilaterally to hand rub. Tongue is midline and moved [id number] without any difficulty. No dysarthria is noted. Shoulder shrug is normal bilaterally. Motor: The strength is right hand and distal right upper extremity is 5-. Otherwise 5 over 5 throughout. Normal tone and bulk. Cerebellum: Normal finger to nose bilaterally. Sensation: Sensation is normal to touch throughout. Reflexes (right/left): 1+ Plantars are mute bilaterally. Results - Laboratory Findings CBC and BMP: 02/25/23 08:26 02/25/23 08:26 Abnormal Lab Findings: Abnormal Labs 02/24/23 02/24/23 02/24/23 16:59 16:59 17:10 WBC 13.8 H Lymphocytes # 6.0 H Carbon Dioxide 21 L Creatinine 1.33 H Glucose 178 H POC Glucose (mg/dL) 170 H Calcium 10.3 H 02/25/23 02/25/23 06:16 08:26 WBC Lymphocytes # Carbon Dioxide Creatinine 1.34 H Glucose 170 H POC Glucose (mg/dL) 133 H Calcium Assessment and Plan Assessment: This is a 63-year-old gentleman who presented because of the speech difficulty since at least this past Wednesday as well as right-sided weakness and possibly or 6 days or more. Subacute ischemic stroke. Likely has small vessel disease due to his risk factors. Diabetes mellitus Hypertension Plan: I started the patient on aspirin 81 mg, Brilinta 90mg 1 tab bid. Not Plavix since interacts with Prandin (DM medication) per pharmacy and can cause hypoglycemia. Increased Lipitor to 40 mg daily. Ordered MRI the brain, 2-D echo, lipid panel, hemoglobin A1c. Consulted PT OT and [facility] Neurochecks Cardiac monitoring We'll defer the rest of the medical management to primary team DVT prophylaxis start the patient on subcu heparin 5000 units every 8 hours Plan discussed with the patient. Thank you for the consultation. Time with Patient: Greater than 30
[2023-02-25 11:39] LABS: Glucose,Whole Blood 142 mg/dL (70-110)
[2023-02-25] MEDS: ASPIRIN 81 MG PO SCH (11:41)
[2023-02-25] MEDS: REPAGLINIDE 1 MG TAB PO SCH ×2 (11:41→16:43)
--- NOTE | 2023-02-25 16:28 | MR ---
EXAMINATION TYPE: MR brain wo con DATE OF EXAM: 02/25/2023 3:57 PM COMPARISON: CT brain C-spine 02/24/2023, CTA head neck 02/24/2023. CLINICAL INDICATION:Male, 63 years old with history of stroke. right sided weakness; PHH, TECHNIQUE: Multi planar, multi sequence imaging was performed through the brain without the administr ation of gadolinium. FINDINGS: The gomez-white junctions, ventricular system, and cisterns appear unremarkable. A few T2/FLAIR hyper intensity foci within the periventricular subcortical white matter of the left frontal and right nicki etal lobes. Midline structures show no abnormality. Diffusion-weighted imaging shows a focus of restr iction within the posterior limb of the left internal capsule corresponding to CT findings. This is c onsistent with acute/subacute ischemia. There is corresponding T2/FLAIR hyperintensity. The susceptib ility weighted images do not reveal any evidence for micro-hemorrhage. The bone marrow signal is within normal limits. The paranasal sinuses and globes are unremarkable. IMPRESSION: 1. Small focus of acute/subacute ischemia within the posterior limb of the left internal capsule pj esponding to recent CT finding. 2. Nonspecific white matter changes, likely secondary to small vessel ischemic disease.
[2023-02-25 16:29] LABS: Glucose,Whole Blood 167 mg/dL (70-110)
[2023-02-25] MEDS: HEPARIN SODIUM,PORCINE/PF 5,000 UNIT/0.5 ML SYRINGE SQ SCH ×2 (16:43→23:44)
--- NOTE | 2023-02-25 17:58 | CA ---
Transthoracic Echo Report Name: Samy Kim Age: 63 Gender: M : 1960 Exam Date: 02/25/2023 12:56 Exam Location: [facility] Ht (in): 72 Wt (lb): 208 Ordering Physician: Jay Garcia MD Attending/Referring Phys: Credit Risk Modeler Kashmir Kowalski RDCS Procedure CPT: Indications: stroke Cardiac Hx: High Chol.; D. M. Technical Quality: Fair Contrast 1: Total Dose (mL): Contrast 2: Total Dose (mL): MEASUREMENTS (Male / Female) Normal Values 2D ECHO LV Diastolic Diameter PLAX 5.3 cm 4.2 - 5.9 / 3.9 - 5.3 cm LV Systolic Diameter PLAX 3.9 cm LV Fractional Shortening PLAX 26.8 % IVS Diastolic Thickness 1.3 cm 0.6 - 1.0 / 0.6 - 0.9 cm IVS Systolic Thickness 1.7 cm LVPW Diastolic Thickness 1.2 cm 0.6 - 1.0 / 0.6 - 0.9 cm LVPW Systolic Thickness 1.6 cm LV Relative Wall Thickness 0.5 LVOT Diameter 2.5 cm LA Systolic Diameter LX 2.4 cm 3.0 - 4.0 / 2.7 - 3.8 cm LV Diastolic Volume MOD BP 67.5 cm??? 67 - 155 / 56 - 104 cm??? LV Systolic Volume MOD BP 38.7 cm??? 22 - 58 / 19 - 49 cm??? LV Ejection Fraction MOD BP 42.7 % >= 55 % LV Stroke Volume MOD BP 28.9 cm??? LV Diastolic Volume MOD 4C 70.1 cm??? LV Systolic Volume MOD 4C 39.4 cm??? LV Ejection Fraction MOD 4C 43.8 % LV Stroke Volume MOD 4C 30.7 cm??? LV Diastolic Length 4C 7.8 cm LV Systolic Length 4C 7.0 cm LV Diastolic Volume MOD 2C 62.8 cm??? LV Systolic Volume MOD 2C 36.2 cm??? LV Ejection Fraction MOD 2C 42.3 % LV Stroke Volume MOD 2C 26.6 cm??? LV Diastolic Length 2C 7.5 cm LV Systolic Length 2C 6.7 cm M-MODE Aortic Root Diameter MM 4.1 cm LA Systolic Diameter MM 3.1 cm LA Ao Ratio MM 0.8 MV E Point Septal Separation 1.8 cm AV Cusp Separation MM 1.8 cm DOPPLER AV Peak Velocity 121.5 cm/s AV Peak Gradient 5.9 mmHg LVOT Peak Velocity 79.9 cm/s LVOT Peak Gradient 2.6 mmHg AV Area Cont Eq pk 3.2 cm??? MV Deceleration [place] 194.1 cm/s??? Mitral E Point Velocity 37.9 cm/s Mitral A Point Velocity 67.7 cm/s Mitral E to A Ratio 0.6 MV Deceleration Time 195.4 ms MV E' Velocity 5.1 cm/s Mitral E to MV E' Ratio 7.5 TR Peak Velocity 199.1 cm/s TR Peak Gradient 15.9 mmHg Right Ventricular Systolic Press 23.9 mmHg PV Peak Velocity 76.6 cm/s PV Peak Gradient 2.3 mmHg FINDINGS Left Ventricle Left ventricular ejection fraction is estimated at 50-55 %. Borderline left ventricular hypertrophy. Grade 1 diastolic dysfunction. Normal systolic function. Right Ventricle Normal right ventricular size and function. RVSP- 24 mm Hg. Right Atrium Normal right atrial size. Left Atrium Normal left atrial size. Mitral Valve Mitral annular calcification. Trace mitral regurgitation. Aortic Valve Trileaflet aortic valve. Tricuspid Valve Mild tricuspid regurgitation. Pulmonic Valve Structurally normal pulmonic valve. Pericardium Normal pericardium. No pericardial effusion. Aorta Moderate aortic dilatation at the level of the sinuses of valsalva (root). CONCLUSIONS Mild LVH with ejection fraction around 50% Previewed by: Dr. Jv Mcghee MD (Electronically Signed) Final Date: 25 February 2023 17:57
[2023-02-25 20:10] LABS: Glucose,Whole Blood 149 mg/dL (70-110)
[2023-02-25] MEDS: TICAGRELOR 90 MG TAB PO SCH (20:52)
[2023-02-25 23:45] LABS: LDL Cholesterol,Calculated 67.1 mg/dL (0.0-131.0)
--- NOTE | 2023-02-26 02:41 | P.HPIM ---
History of Present Illness H&P Date: 02/25/23 Chief Complaint: Speech difficulty Patient is a 63-year-old male with a known history of diabetes type 2 insulin- dependent presented to ER due to complaints of difficulty in speech and right- sided weakness. Patient started having symptoms since last Wednesday. Patient is unable to express and could not speak out. Patient also noted to have an right-sided weakness and was dragging his right foot. Eventually he contacted his primary care physician was notified to come to ER. Denies any complaints of chest pain or shortness of breath. No palpitations. No leg swelling. No prior history of CVA/TIA. EKG on admission showed sinus rhythm with frequent ventricular complexes. CT head and cervical spine showed age-related atrophic and chronic small ischemic changes without acute intracranial process seen. Tiny focus of decreased attenuation posterior limb of the left internal capsule. CT cervical spine unenhanced CT of the cervical spine was performed with bone and soft tissue. No evidence of acute fracture or subluxation of the cervical spine. CT angiogram of the head and neck showed no significant diameter reduction to account for patient's symptoms. No significant abnormality. Blood pressure was 184/80 on admission pulse 48 respiration 18 and pulse ox 97% on room air. Laboratory showed WBC 13.8 hemoglobin 17.0 and platelets 204 Sodium 137 potassium 4.0 chloride 104 bicarb is 21 BUN 14 and creatinine 1.33 and blood sugar 178. A1c 7.3 and calcium 10.3 on admission troponin x1 negative LDL 67.1 Review of Systems Constitutional: Patient denies any fever or chills . no Generalized weakness. Abdomen: Patient denied any nausea or vomiting or abd. pain Cardiovascular: Patient denies any chest pain or short of breath no palp itations. Respiratory: patient denied any cough . no sputum production. No shortness of breath Neurologic: Patient denied any numbness or tingling headache. Difficulty speaking and right-sided weakness. Musculoskeletal: Patient denies any complaints of joint swelling or deformity. Skin: Negative Psychiatric: Negative Endocrine: No heat or cold intolerance. No recent weight gain. Genitourinary: No dysuria or hematuria. All other 14 point ROS negative except the above Past Medical History Past Medical History: Diabetes Mellitus, Eye Disorder, GERD/Reflux, Hypertension Additional Past Medical History / Comment(s): GLAUCOMA History of Any Multi-Drug Resistant Organisms: None Reported Past Surgical History: Orthopedic Surgery Additional Past Surgical History / Comment(s): LEFT SHOULDER SX, LEFT KNEE ARTHROSCOPIC X2, COLONOSCOPY, BILAT EYE SX FOR GLAUCOMA Past Anesthesia/Blood Transfusion Reactions: No Reported Reaction Past Psychological History: No Psychological Hx Reported Smoking Status: Never smoker Past Alcohol Use History: Occasional Past Drug Use History: None Reported - Past Family History Mother Family Medical History: Cancer Additional Family Medical History / Comment(s): LUNG CANCER Father Family Medical History: Cancer Additional Family Medical History / Comment(s): PROSTATE CANCER Medications and Allergies Home Medications Medication Instructions Recorded Confirmed Type Atorvastatin Calcium [Lipitor] 20 mg PO DAILY 12/28/16 02/24/23 History Dapagliflozin Propanediol [Farxiga] 10 mg PO DAILY 12/28/16 02/24/23 History Esomeprazole Magnesium [NexIUM] 40 mg PO DAILY 12/28/16 02/24/23 History Insulin Degludec [Tresiba 56 units SQ HS 02/24/23 02/24/23 History Flextouch U-200 Pen] Repaglinide [Prandin] 2 mg PO TID 02/24/23 02/24/23 History Allergies Allergy/AdvReac Type Severity Reaction Status Date / Time No Known Allergies Allergy Verified 02/24/23 19:04 Physical Exam Vitals: Vital Signs Temp Pulse Pulse Resp BP BP Pulse Ox 02/25/23 11:05 50 L 18 154/92 02/25/23 08:55 97.7 F 66 17 127/82 02/25/23 04:32 60 18 02/25/23 04:14 98.2 F 60 18 125/85 02/25/23 02:16 79 18 131/87 98 02/24/23 19:19 50 L 18 145/90 98 02/24/23 16:18 98.2 F 48 L 18 184/80 97 Intake and Output 02/24/23 02/25/23 02/25/23 22:59 06:59 14:59 Intake Total 540 Balance 540 Intake: Oral 540 Other: Voiding Method Toilet Toilet # Voids 0 Weight 94.347 kg 94.347 kg PHYSICAL EXAMINATION: Patient is lying in the bed comfortably, no acute distress, awake alert and oriented.. HEENT: Normocephalic. Neck is supple. Pupils reactive. Nostrils clear. Oral cavity is moist. Neck reveals no JVD, carotid bruits, or thyromegaly. CHEST EXAMINATION: Trachea is central. Symmetrical expansion. Lung gonzáles clear to auscultation and percussion. CARDIAC: Normal S1, S2 with no gallops. No murmurs ABDOMEN: Soft. Bowel sounds present. Nontender. No organomegaly. No abdominal bruits. Extremities: reveal no edema. No clubbing or cyanosis Neurologically awake, alert, oriented x3. Minimal difficulty finding words. Skin: No rash or skin lesions. Psychiatric: Coperative. Nonsuicidal, Musculoskeletal: No joint swelling or deformity. Normal range of motion. Results CBC & Chem 7: 02/25/23 08:26 02/25/23 08:26 Labs: Abnormal Lab Results - Last 24 Hours (Table) 02/24/23 02/24/23 02/24/23 Range/Units 16:59 16:59 17:10 WBC 13.8 H (3.8-10.6) k/uL Lymphocytes # 6.0 H (1.0-4.8) k/uL Carbon Dioxide 21 L (22-30) mmol/L Creatinine 1.33 H (0.66-1.25) mg/dL Glucose 178 H (74-99) mg/dL POC Glucose (mg/dL) 170 H (70-110) mg/dL Calcium 10.3 H (8.4-10.2) mg/dL 02/25/23 02/25/23 02/25/23 Range/Units 06:16 08:26 11:38 WBC (3.8-10.6) k/uL Lymphocytes # (1.0-4.8) k/uL Carbon Dioxide (22-30) mmol/L Creatinine 1.34 H (0.66-1.25) mg/dL Glucose 170 H (74-99) mg/dL POC Glucose (mg/dL) 133 H 142 H (70-110) mg/dL Calcium (8.4-10.2) mg/dL Thrombosis Risk Factor Assmnt - DVT/VTE Prophylaxis DVT/VTE Prophylaxis: Pharmacologic Prophylaxis ordered - Choose All That Apply Each Factor Represents 1 point: Obesity (BMI >25) Each Risk Factor Represents 2 Points: Age 61-74 years Thrombosis Risk Factor Assessment Total Risk Factor Score: 3 Thrombosis Risk Factor Assessment Level: Moderate Risk Assessment and Plan Assessment: Expressive aphasia and with right-sided weakness possible acute CVA Diabetes type 2 insulin-dependent Hypertension DVT prophylaxis heparin subcu Leukocytosis likely reactive resolved now Acute kidney injury likely prerenal. Plan: Patient will be placed on telemetry monitoring. Continue with neurochecks. Was started on aspirin and Brilinta and statins. Neurology is on board. MRI of the brain was ordered which is to be done around 3 PM today PT OT consult and EMERGENCY MANAGEMENT SYSTEM DIRECTOR evaluation. Continue to follow closely. Time with Patient: Greater than 30
[2023-02-26 06:08] LABS: Glucose,Whole Blood 165 mg/dL (70-110)
[2023-02-26] MEDS: REPAGLINIDE 1 MG TAB PO SCH ×3 (06:36→16:56)
[2023-02-26] MEDS: INSULIN ASPART (NovoLOG) 100 UNIT/ML VIAL SQ SCH ×4 (06:37→20:36)
[2023-02-26] MEDS: PANTOPRAZOLE 40 MG TABLET PO SCH (08:41)
[2023-02-26] MEDS: HEPARIN SODIUM,PORCINE/PF 5,000 UNIT/0.5 ML SYRINGE SQ SCH ×3 (08:41→23:51)
[2023-02-26] MEDS: ASPIRIN 81 MG PO SCH (08:41)
[2023-02-26] MEDS: DAPAGLIFLOZIN PROPANEDIOL 10 MG TABLET PO SCH (08:41)
[2023-02-26] MEDS: ATORVASTATIN 40 MG TAB PO SCH (08:41)
[2023-02-26] MEDS: TICAGRELOR 90 MG TAB PO SCH ×2 (08:41→20:36)
[2023-02-26 08:48] LABS: Calcium 9.9 mg/dL (8.4-10.2); Potassium 4.6 mmol/L (3.5-5.1)
[2023-02-26] MEDS ORDERED: ALPRAZolam 0.5 MG TAB PO PRN (11:26)
[2023-02-26 11:41] LABS: Glucose,Whole Blood 141 mg/dL (70-110)
--- NOTE | 2023-02-26 12:31 | P.PN ---
Subjective Progress Note Date: 02/26/23 The patient seen at bedside and feels about the same as yesterday. He denies of any new neurological issues appear denies of any new weakness, numbness visual disturbance difficulty swallowing. Objective - Vital Signs Vital signs: Vital Signs Temp 97.9 F 02/26/23 08:35 Pulse 56 L 02/26/23 11:50 Resp 19 02/26/23 11:50 BP 146/94 02/26/23 11:50 Pulse Ox 98 02/25/23 02:16 FiO2 Intake & Output 02/25/23 02/26/23 02/26/23 18:59 06:59 18:59 Other: Voiding Method Toilet Toilet Toilet # Voids 2 1 2 - Exam GENERAL: The patient is lying in bed and is not in acute distress. NEUROLOGICAL: Higher mental function: The patient is awake, alert, oriented to self, place and time. Patient is following commands. No aphasia and no neglect. Cranial nerves: The pupils are round, equal and reactive to light and accommodation. Visual gonzáles are full to confrontation throughout. Extraocular movement is intact no nystagmus is noted. Facial sensation is normal to touch throughout. The facial strength is subtle right nasolabial flattening. Hearing is normal bilaterally to hand rub. Tongue is midline and moved [id number] without any difficulty. No dysarthria is noted. Shoulder shrug is normal bilaterally. Motor: The strength is right hand and distal right upper extremity is 5- to 5. Otherwise 5 over 5 throughout. Normal tone and bulk. Cerebellum: Normal finger to nose bilaterally. Sensation: Sensation is normal to touch throughout. Reflexes (right/left): 1+ Plantars are mute bilaterally. Some of the workup during his hospital visit consisted of: Atenolol is triglyceride 103, cholesterol is 146 LDL 67 HDL 58. Hemoglobin A1c is 7.3 CT of the head is reported as age-related atrophy and chronic small vessel ischemic change without acute intracranial process seen at this time. Tiny focus of decreased attenuation posterior limb left internal capsule. I personally reviewed the CT and I feel the hypoattenuation over posterior limb of left internal capsule seems subacute. CT angiography of the head and neck is reported as no significant abnormality. MRI the brain is reported as small focus of acute/subacute ischemia within the posterior limb of left internal capsule corresponding to recent CT. Nonspecific white matter changes, likely secondary to small vessel ischemic disease. I personally reviewed the MRI and I felt the patient does have more of a subacute over the left internal capsule posterior limb especially seen it is seen on the CT of the head. I felt also the lesions on the periphery of internal capsule/thalamus periphery and felt there is a hyperintensity that small in the distal midbrain on the left side 2-D echo was reported as mild left ventricle hypertrophy with ejection fraction about 50%. - Labs CBC & Chem 7: 02/25/23 08:26 02/26/23 07:32 Labs: Abnormal Lab Results - Last 24 Hours (Table) 02/25/23 02/25/23 02/25/23 Range/Units 08:26 16:27 20:09 Creatinine (0.66-1.25) mg/dL Glucose (74-99) mg/dL POC Glucose (mg/dL) 167 H 149 H (70-110) mg/dL Hemoglobin A1c 7.3 H (0.0-6.0) % 02/26/23 02/26/23 02/26/23 Range/Units 06:06 07:32 11:39 Creatinine 1.46 H (0.66-1.25) mg/dL Glucose 156 H (74-99) mg/dL POC Glucose (mg/dL) 165 H 141 H (70-110) mg/dL Hemoglobin A1c (0.0-6.0) % Assessment and Plan Assessment: This is a 63-year-old gentleman who presented because of the speech difficulty since at least this past Wednesday as well as right-sided weakness and possibly or 6 days or more. Subacute ischemic stroke over the left basal ganglia (posterior limb internal capsul). Likely has small vessel disease due to his risk factors. Diabetes mellitus (HbA1c 7.3) Hypertension Plan: Continue aspirin 81 mg, Brilinta 90mg 1 tab bid. Patient to be on dual antiplatelets for 21 days after 21 days stop Brilinta but continue ASA. Not Plavix since interacts with Prandin (DM medication) per pharmacy and can cause hypoglycemia. On Lipitor to 40 mg daily. Consulted PT OT and RN DERMATOLOGY Neurochecks Cardiac monitoring We'll defer the rest of the medical management to primary team DVT prophylaxis On subcu heparin 5000 units every 8 hours Plan discussed with the patient and his nurse. Time with Patient: Less than 30
--- NOTE | 2023-02-26 13:39 | US ---
EXAMINATION TYPE: US renals and bladder DATE OF EXAM: 02/26/2023 COMPARISON: NONE CLINICAL HISTORY: more[place]. MOREL[place] EXAM MEASUREMENTS: Right Kidney: 11.4 x 7.0 x 6.0 cm Left Kidney: 10.7 x 5.1 x 5.2 cm Right Kidney: Appearance of possible prominent column of Martell. No obstructive uropathy or renal ca lculus. Left Kidney: Appearance of possible prominent column of Martell. No obstructive uropathy or renal castillo culus. Bladder: Anechoic area with hyperechoic border seen within the bladder: 1.1 x 1.4 x 1.4 cm. Bilateral Jets seen: Yes IMPRESSION: Left ureterocele suggested. Further evaluation with CT urogram recommended.
[2023-02-26 16:50] LABS: Glucose,Whole Blood 262 mg/dL (70-110)
[2023-02-26 20:00] VITALS: RESP 18
[2023-02-26 20:18] LABS: Glucose,Whole Blood 159 mg/dL (70-110)
--- NOTE | 2023-02-27 01:02 | P.PN ---
Subjective Patient is a 63-year-old male with a known history of diabetes type 2 insulin- dependent presented to ER due to complaints of difficulty in speech and right- sided weakness. Patient started having symptoms since last Wednesday. Patient is unable to express and could not speak out. Patient also noted to have an right-sided weakness and was dragging his right foot. Eventually he contacted his primary care physician was notified to come to ER. Denies any complaints of chest pain or shortness of breath. No palpitations. No leg swelling. No prior history of CVA/TIA. EKG on admission showed sinus rhythm with frequent ventricular complexes. CT head and cervical spine showed age-related atrophic and chronic small ischemic changes without acute intracranial process seen. Tiny focus of decreased attenuation posterior limb of the left internal capsule. CT cervical spine unenhanced CT of the cervical spine was performed with bone and soft tissue. No evidence of acute fracture or subluxation of the cervical spine. CT angiogram of the head and neck showed no significant diameter reduction to account for patient's symptoms. No significant abnormality. Blood pressure was 184/80 on admission pulse 48 respiration 18 and pulse ox 97% on room air. Laboratory showed WBC 13.8 hemoglobin 17.0 and platelets 204 Sodium 137 potassium 4.0 chloride 104 bicarb is 21 BUN 14 and creatinine 1.33 and blood sugar 178. A1c 7.3 and calcium 10.3 on admission troponin x1 negative LDL 67.1 02/26/2023 Patient admitted with signs and symptoms of left internal capsule infarction, he had right hemiparesis and slurred speech which is significantly improved since admission, his weakness is minimal and he can talk more freely. He denies headache dizziness or any other neurological symptoms. Patient was started on dual antiplatelet therapy and currently is on aspirin and brilinta , risks including but not limited to bleeding or explained for him extensively and he verbalized understanding and acceptance Ejection fraction around 50% and CTA of the head and neck was unremarkable for acute findings. Today patient was cleared for discharge by neurologist however his kidney function worsened 1.3 up to 1.46, patient wasn't aware of any kidney problem before. His creatinine on admission was 1.3. Because of this we held his discharge and patient is agreeable. Plan after discussed with the patient with daughter at bedside upon his request and they are agreeable with the plan We'll ask for dining services director evaluation, renal ultrasound showed left ureterocele therefore we consulted also neurologist evaluated the patient Abdomen that patient denies chest pain or dyspnea or change in urine or bowel habits. No fever. Objective - Vital Signs Vital signs: Vital Signs Temp 97.9 F 02/26/23 08:35 Pulse 77 02/26/23 08:35 Resp 18 02/26/23 08:35 BP 138/97 02/26/23 08:35 Pulse Ox 98 02/25/23 02:16 FiO2 Intake & Output 02/25/23 02/26/23 02/26/23 18:59 06:59 18:59 Other: Voiding Method Toilet Toilet Toilet # Voids 2 1 2 - Exam GENERAL: The patient is alert and oriented x3, not in any acute distress. Well developed, well nourished. HEENT: Pupils are round and equally reacting to light. EOMI. No scleral icterus. No conjunctival pallor. Normocephalic, atraumatic. No pharyngeal erythema. No thyromegaly. CARDIOVASCULAR: S1 and S2 present. No murmurs, rubs, or gallops. PULMONARY: Chest is clear to auscultation, no wheezing or crackles. ABDOMEN: Soft, nontender, nondistended, normoactive bowel sounds. No palpable organomegaly. MUSCULOSKELETAL: No joint swelling or deformity. EXTREMITIES: No cyanosis, clubbing, or pedal edema. NEUROLOGICAL: Cranial nerves are grossly intact, mild right hemiparesis, improving, no slurred speech. Sensation intact. Meningeal signs are absent SKIN: No rashes. no petechiae. 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 Braswell or Dr. Reyes in 1-2 weeks and he is agreeable Monitored creatinine and consult nephrology urology consult Labs and medication were reviewed.. Continue same treatment. Continue with symptomatic treatment. Resume home medication. Monitor labs and vitals. DVT and GI prophylaxis. Further recommendations as per clinical course of the patient DVT prophylaxis: Subcutaneous heparin GI Prophylaxis: Pepcid PT/OT: Recommended home Prognosis is guarded
[2023-02-27 05:59] LABS: Glucose,Whole Blood 177 mg/dL (70-110)
[2023-02-27] MEDS: INSULIN ASPART (NovoLOG) 100 UNIT/ML VIAL SQ SCH ×2 (06:54→12:42)
[2023-02-27] MEDS: REPAGLINIDE 1 MG TAB PO SCH ×2 (06:55→13:05)
[2023-02-27 10:34] VITALS: TEMP 97.7
[2023-02-27] MEDS: TICAGRELOR 90 MG TAB PO SCH (10:34)
[2023-02-27] MEDS: DAPAGLIFLOZIN PROPANEDIOL 10 MG TABLET PO SCH (10:34)
[2023-02-27] MEDS: PANTOPRAZOLE 40 MG TABLET PO SCH (10:35)
[2023-02-27] MEDS: ATORVASTATIN 40 MG TAB PO SCH (10:35)
[2023-02-27] MEDS: ASPIRIN 81 MG PO SCH (10:35)
[2023-02-27] MEDS: HEPARIN SODIUM,PORCINE/PF 5,000 UNIT/0.5 ML SYRINGE SQ SCH (10:35)
[2023-02-27 10:52] LABS: Calcium 10.2 mg/dL (8.4-10.2); Potassium 4.4 mmol/L (3.5-5.1)
[2023-02-27 11:41] LABS: Glucose,Whole Blood 146 mg/dL (70-110)
--- NOTE | 2023-02-27 11:45 | P.PN ---
Subjective Progress Note Date: 02/27/23 The patient seen at bedside and he states that the he feels about the same he continues to have some dextrexity issues with right hand. Otherwise she is doing well. Objective - Vital Signs Vital signs: Vital Signs Temp 97.7 F 02/27/23 08:00 Pulse 71 02/27/23 08:00 Resp 18 02/27/23 08:00 BP 140/93 02/27/23 08:00 Pulse Ox 99 02/27/23 08:00 FiO2 Intake & Output 02/26/23 02/27/23 02/27/23 18:59 06:59 18:59 Intake Total 180 Balance 180 Intake: Oral 180 Other: Voiding Method Toilet Toilet # Voids 2 2 - Exam GENERAL: The patient is lying in bed and is not in acute distress. NEUROLOGICAL: Higher mental function: The patient is awake, alert, oriented to self, place and time. Patient is following commands. No aphasia and no neglect. Cranial nerves: The pupils are round, equal and reactive to light and accommodation. Visual gonzáles are full to confrontation throughout. Extraocular movement is intact no nystagmus is noted. Facial sensation is normal to touch throughout. The facial strength is subtle right nasolabial flattening. Hearing is normal bilaterally to hand rub. Tongue is midline and moved [id number] without any difficulty. No dysarthria is noted. Shoulder shrug is normal bilaterally. Motor: The strength is right hand and distal right upper extremity is 5- to 5. Otherwise 5 over 5 throughout. Normal tone and bulk. Cerebellum: Normal finger to nose bilaterally. Sensation: Sensation is normal to touch throughout. Reflexes (right/left): 1+ Plantars are mute bilaterally. Some of the workup during his hospital visit consisted of: Atenolol is triglyceride 103, cholesterol is 146 LDL 67 HDL 58. Hemoglobin A1c is 7.3 CT of the head is reported as age-related atrophy and chronic small vessel ischemic change without acute intracranial process seen at this time. Tiny focus of decreased attenuation posterior limb left internal capsule. I personally reviewed the CT and I feel the hypoattenuation over posterior limb of left internal capsule seems subacute. CT angiography of the head and neck is reported as no significant abnormality. MRI the brain is reported as small focus of acute/subacute ischemia within the posterior limb of left internal capsule corresponding to recent CT. Nonspecific white matter changes, likely secondary to small vessel ischemic disease. I personally reviewed the MRI and I felt the patient does have more of a subacute over the left internal capsule posterior limb especially seen it is seen on the CT of the head. I felt also the lesions on the periphery of internal capsule/thalamus periphery and felt there is a hyperintensity that small in the distal midbrain on the left side 2-D echo was reported as mild left ventricle hypertrophy with ejection fraction about 50%. - Labs CBC & Chem 7: 02/25/23 08:26 02/27/23 09:27 Labs: Abnormal Lab Results - Last 24 Hours (Table) 02/26/23 02/26/23 02/27/23 Range/Units 16:46 20:14 05:57 Creatinine (0.66-1.25) mg/dL Glucose (74-99) mg/dL POC Glucose (mg/dL) 262 H 159 H 177 H (70-110) mg/dL 02/27/23 02/27/23 Range/Units 09:27 11:38 Creatinine 1.47 H (0.66-1.25) mg/dL Glucose 209 H (74-99) mg/dL POC Glucose (mg/dL) 146 H (70-110) mg/dL Assessment and Plan Assessment: This is a 63-year-old gentleman who presented because of the speech difficulty since at least this past Wednesday as well as right-sided weakness and possibly or 6 days or more. Subacute ischemic stroke over the left basal ganglia (posterior limb internal capsul). Likely has small vessel disease due to his risk factors. Diabetes mellitus (HbA1c 7.3) Hypertension Plan: Continue aspirin 81 mg, Brilinta 90mg 1 tab bid. Patient to be on dual antiplatelets for 21 days. After 21 days stop Brilinta but continue ASA indefi nitely. Not Plavix since interacts with Prandin (DM medication) per pharmacy and can cause hypoglycemia. On Lipitor to 40 mg daily. Consulted PT OT and SITE SUPERVISOR Neurochecks Cardiac monitoring We'll defer the rest of the medical management to primary team DVT prophylaxis On subcu heparin 5000 units every 8 hours Recommend the patient to follow-up with neurologist as outpatient within 1-2 weeks. Plan discussed with the patient and his nurse and primary team. There is no additional neurological work-up. Will sign off. Please reconsult if needed. Time with Patient: Less than 30
[2023-02-27 13:04] VITALS: BP 140/98; PULSE 75
--- NOTE | 2023-02-27 14:36 | P.GSCN ---
History of Present Illness Consult date: 02/27/23 Reason for Consult: Ureterocele Requesting physician: Gabriel E Sheet History of present illness: the patient is a 63-year-old white male admitted for management of a stroke. His serum creatinine level is mildly elevated. Renal ultrasound was done in view of this, revealing a probable left ureterocele with no evidence of hydronephrosis. He denies any prior history of UTIs or urolithiasis. Review of Systems - Genitourinary Denies hematuria Past Medical History Past Medical History: Diabetes Mellitus, Eye Disorder, GERD/Reflux, Hypertension Additional Past Medical History / Comment(s): GLAUCOMA History of Any Multi-Drug Resistant Organisms: None Reported Past Surgical History: Orthopedic Surgery Additional Past Surgical History / Comment(s): LEFT SHOULDER SX, LEFT KNEE ARTHROSCOPIC X2, COLONOSCOPY, BILAT EYE SX FOR GLAUCOMA Past Anesthesia/Blood Transfusion Reactions: No Reported Reaction Past Psychological History: No Psychological Hx Reported Smoking Status: Never smoker Past Alcohol Use History: Occasional Past Drug Use History: None Reported - Past Family History Mother Family Medical History: Cancer Additional Family Medical History / Comment(s): LUNG CANCER Father Family Medical History: Cancer Additional Family Medical History / Comment(s): PROSTATE CANCER Medications and Allergies Home Medications Medication Instructions Recorded Confirmed Type Esomeprazole Magnesium [NexIUM] 40 mg PO DAILY 12/28/16 02/24/23 History Repaglinide [Prandin] 2 mg PO TID 02/24/23 02/24/23 History Aspirin 81 mg PO DAILY #30 tab 02/27/23 Rx Atorvastatin [Lipitor] 40 mg PO DAILY #40 tab 02/27/23 Rx Ticagrelor [Brilinta] 90 mg PO BID 21 Days #42 tab 02/27/23 Rx Allergies Allergy/AdvReac Type Severity Reaction Status Date / Time No Known Allergies Allergy Verified 02/24/23 19:04 Surgical - Exam Vital Signs Temp Pulse Resp BP Pulse Ox 98.2 F 48 L 18 184/80 97 02/24/23 16:18 02/24/23 16:18 02/24/23 16:18 02/24/23 16:18 02/24/23 16:18 - General well developed, well nourished, no distress - Respiratory normal respiratory effort - Psychiatric oriented to time, oriented to person, oriented to place, speech is normal, memory intact Results - Labs 02/25/23 08:26 02/27/23 09:27 Abnormal Lab Results - Last 24 Hours (Table) 02/26/23 02/26/23 02/27/23 Range/Units 16:46 20:14 05:57 Creatinine (0.66-1.25) mg/dL Glucose (74-99) mg/dL POC Glucose (mg/dL) 262 H 159 H 177 H (70-110) mg/dL 02/27/23 02/27/23 Range/Units 09:27 11:38 Creatinine 1.47 H (0.66-1.25) mg/dL Glucose 209 H (74-99) mg/dL POC Glucose (mg/dL) 146 H (70-110) mg/dL Diabetes panel 02/27/23 Range/Units 09:27 Sodium 140 (137-145) mmol/L Potassium 4.4 (3.5-5.1) mmol/L Chloride 105 (98-107) mmol/L Carbon Dioxide 25 (22-30) mmol/L BUN 17 (9-20) mg/dL Creatinine 1.47 H (0.66-1.25) mg/dL Glucose 209 H (74-99) mg/dL Calcium 10.2 (8.4-10.2) mg/dL Calcium panel 02/27/23 Range/Units 09:27 Calcium 10.2 (8.4-10.2) mg/dL Pituitary panel 02/27/23 Range/Units 09:27 Sodium 140 (137-145) mmol/L Potassium 4.4 (3.5-5.1) mmol/L Chloride 105 (98-107) mmol/L Carbon Dioxide 25 (22-30) mmol/L BUN 17 (9-20) mg/dL Creatinine 1.47 H (0.66-1.25) mg/dL Glucose 209 H (74-99) mg/dL Calcium 10.2 (8.4-10.2) mg/dL Adrenal panel 02/27/23 Range/Units 09:27 Sodium 140 (137-145) mmol/L Potassium 4.4 (3.5-5.1) mmol/L Chloride 105 (98-107) mmol/L Carbon Dioxide 25 (22-30) mmol/L BUN 17 (9-20) mg/dL Creatinine 1.47 H (0.66-1.25) mg/dL Glucose 209 H (74-99) mg/dL Calcium 10.2 (8.4-10.2) mg/dL - Imaging US - kidney/bladder: report reviewed, image reviewed Assessment and Plan Assessment: The patient has an incidentally detected left ureterocele. He is asymptomatic. There is no hydronephrosis. (1) Ureterocele Current Visit: Yes Status: Acute Code(s): N28.89 - OTHER SPECIFIED DISORDERS OF KIDNEY AND URETER SNOMED Code(s): 27714907 Plan: I reviewed in detail for Mr. Kim what a ureterocele is, and the fact that it requires no further evaluation or treatment as long as he is asymptomatic. I explained to him that stones can form within ureteroceles, and if this occurred in the future he would require treatment. He is urologically stable for discharge. No follow-up is required. Time with Patient: Less than 30
--- NOTE | 2023-02-28 11:07 | P.NPCON ---
History of Present Illness - Reason for Consult acute renal failure - History of Present Illness Patient is a 63-year-old male with history of type 2 diabetes who presented to the hospital with slurred speech and right-sided weakness. CT head showed tiny focus of decreased attenuation in the posterior limb of left internal. Muscle Strength Has Improved. No History of Kidney Diseases Serum creatinine was 1.47 today and it was 1.3 on initial admission. No previous labs available for comparison Patient denies any difficulty in voiding. Blood pressure is not low Started on farXIGA Review of Systems As per HPI Past Medical History Past Medical History: Diabetes Mellitus, Eye Disorder, GERD/Reflux, Hypertension Additional Past Medical History / Comment(s): GLAUCOMA History of Any Multi-Drug Resistant Organisms: None Reported Past Surgical History: Orthopedic Surgery Additional Past Surgical History / Comment(s): LEFT SHOULDER SX, LEFT KNEE ARTHROSCOPIC X2, COLONOSCOPY, BILAT EYE SX FOR GLAUCOMA Past Anesthesia/Blood Transfusion Reactions: No Reported Reaction Past Psychological History: No Psychological Hx Reported Smoking Status: Never smoker Past Alcohol Use History: Occasional Past Drug Use History: None Reported - Past Family History Mother Family Medical History: Cancer Additional Family Medical History / Comment(s): LUNG CANCER Father Family Medical History: Cancer Additional Family Medical History / Comment(s): PROSTATE CANCER Medications and Allergies Home Medications Medication Instructions Recorded Confirmed Type Esomeprazole Magnesium [NexIUM] 40 mg PO DAILY 12/28/16 02/24/23 History Repaglinide [Prandin] 2 mg PO TID 02/24/23 02/24/23 History Aspirin 81 mg PO DAILY #30 tab 02/27/23 Rx Atorvastatin [Lipitor] 40 mg PO DAILY #40 tab 02/27/23 Rx Ticagrelor [Brilinta] 90 mg PO BID 21 Days #42 tab 02/27/23 Rx Allergies Allergy/AdvReac Type Severity Reaction Status Date / Time No Known Allergies Allergy Verified 02/24/23 19:04 Physical Exam Vitals: Vital Signs Pulse Resp BP Pulse Ox 02/27/23 12:00 75 18 140/98 97 Awake, comfortable, no acute distress Examination of the heart S1 and S2 Examination of the lungs bilateral breath sounds are heard Abdomen is soft nontender Examination of the lower extremities shows no evidence of edema LOAD MANAGER exam grossly intact Results - Lab Results Most recent lab results Calcium 10.2 mg/dL (8.4-10.2) 02/27/23 09:27 02/25/23 08:26 02/27/23 09:27 Assessment and Plan Assessment: 1. Acute kidney injury most likely related to recent initiation of FARXIGA. Okay to continue medication for now and repeat labs as outpatient. Check post void residual residual to rule out urine retention in view of recent CVA 2. Type 2 diabetes 3. Gastroesophageal reflux disease 4. Subacute ischemic CVA involving left basal ganglia Plan: Check post void residual residual Continue with Sglt2 inhibitors Repeat labs as outpatient Check UA and ultrasound as outpatient Okay to discharge patient if postvoid residual residual not elevated.
--- NOTE | 2023-03-02 23:08 | P.DS ---
Providers Date of admission: 02/24/23 22:31 Attending physician: Shaun Lundberg MD Consults: 02/24/23 22:31 Consult Physician Routine Consulting Provider: Jay Garcia Consult Reason/Comments: cva Do you want consulting provider notified?: Yes 02/26/23 11:25 Consult Physician Routine Consulting Provider: Gely Morillo Consult Reason/Comments: amaya Do you want consulting provider notified?: Yes 02/27/23 00:57 Consult Physician Routine Consulting Provider: Joe Gresham Consult Reason/Comments: left ureterocele Do you want consulting provider notified?: Yes, Notify in am Primary care physician: Shelby Lundberg Hospital Course: Diagnoses: Acute/subacute left internal capsule infarction with right hemiparesis and slurred speech, improving Acute kidney injury, could be secondary to left ureterocele and contrast Left ureterocele Hospital course: Patient is a 63-year-old male with a known history of diabetes type 2 insulin- dependent presented to ER due to complaints of difficulty in speech and right- sided weakness. Patient started having symptoms since last Wednesday. Patient presents with stroke signs and symptoms, MRI of the brain showing acute/subacute ischemia in the posterior limb of the left internal capsule. Patient evaluated by neurologist since admission. Patient was started on aspirin and brilinta x 3wk and then stop brilinta and continue with aspirin indefinitely per re commendation open neurologist. I explained for the patient this recommendation and he verbalized understanding and acceptance. Risks of this medication are explained for the patient in details including but not limited to the risk of bleeding and he verbalized understanding and acceptance to continue with this medication. Also patient has evidence of elevated creatinine and acute kidney injury, he is evaluated by exhibit artist and urologist. His acute kidney injury is suspected secondary to farxigan which is held upon discharge His sugar is controlled. Creatinine is stable at 1.4. I talked to [facility] bedside nurse who checked his postvoid residual and was not elevated. Wasn't that patient was found medically stable for discharge and he was cleared for discharge by all consultants including the neurologist, exhibit artist and urologist Patient himself was very eager to go home since morning, he refuses to wait furthermore the hospital and he wants to follow up as an outpatient. Patient denies any other complaints, no chest pain or dyspnea. No change in urine or bowel habits. No fever. No other new complaints. Problems and management plan were discussed with the patient and he verbalized understanding and acceptance Patient was found stable and can be discharged home in guarded prognosis however he needs follow-up as an outpatient. Patient was instructed to follow up with P TOMÁS lundberg within one week and patient agrees Patient also instructed to follow up with exhibit artist Dr. Morillo in 1-2 weeks and neurologist in [address] keita weighed to and are suggested for him. Also patient instructed to follow up with pss delivery professional in one week after discharge and he agrees and wants to make his own appointments Physical exam Gen: patient is a AAOx3, no distress CVS: S1-S2, RRR, no murmur Lungs: B/L CTA, no wheezing Abdomen: soft, no distention, no tenderness, positive bowel sounds Extremity: no leg edema or induration Time spent more than 35 minutes Patient Condition at Discharge: Serious Plan - Discharge Summary Discharge Rx Participant: No New Discharge Prescriptions: New Ticagrelor [Brilinta] 90 mg PO BID 21 Days #42 tab Atorvastatin [Lipitor] 40 mg PO DAILY #40 tab Aspirin 81 mg PO DAILY #30 tab Continue Esomeprazole Magnesium [NexIUM] 40 mg PO DAILY Repaglinide [Prandin] 2 mg PO TID Discontinued Dapagliflozin Propanediol [Farxiga] 10 mg PO DAILY Atorvastatin Calcium [Lipitor] 20 mg PO DAILY Insulin Degludec [Tresiba Flextouch U-200 Pen] 56 units SQ HS Discharge Medication List Esomeprazole Magnesium [NexIUM] 40 mg PO DAILY 12/28/16 [History] Repaglinide [Prandin] 2 mg PO TID 02/24/23 [History] Aspirin 81 mg PO DAILY #30 tab 02/27/23 [Rx] Atorvastatin [Lipitor] 40 mg PO DAILY #40 tab 02/27/23 [Rx] Ticagrelor [Brilinta] 90 mg PO BID 21 Days #42 tab 02/27/23 [Rx] Follow up Appointment(s)/Referral(s): Gely Morillo MD [STAFF PHYSICIAN] - 2 Weeks (exhibit artist ) Aziza Reyes MD [REFERRING] - 1 Week (neurologist-Office will call with follow up appointment. ) Jeremy Vigil MD [REFERRING] - 1 Week (pss delivery professional-elevated A1C. Office closed at this time, call to make appointment. ) Shelby Lundberg DO [Primary Care Provider] - 1-2 days (Office closed, call for follow up appointment. ) Fidencio Braswell MD [Medical Doctor] - 1 Week (neurologist another option. ) [facility] Visiting Nurse, [NON-STAFF] - Patient Instructions/Handouts: Ischemic Stroke (DC) Activity/Diet/Wound Care/Special Instructions: heart healthy diet , low carbohydrate diet 1600 k castillo per day activity is restricted till you see your doctor we recommend to check your glucose 4 times a day before each meal and at bed time , keep the results in a log book and bring it to your doctor upon your appointment date if your glucose is less than 70 or more than 400 then call 911 and come to emergency room Continue aspirin 81 mg, Brilinta 90mg 1 tab bid. Patient to be on dual antiplatelets for 21 days. After 21 days stop Brilinta but continue ASA indefinitely Discharge Disposition: HOME WITH HOME HEALTH SERVICES
== END 2023-02-27 15:03 | disposition home health service (06) | DRG 65 ==
LOC: EC 16:14 → 3SCARD 22:31
PROVIDERS: ADMIT Family Medicine; ATTEND Family Medicine
DX: I63.9 Cerebral infarction, unspecified (principal); G81.91 Hemiplegia, unspecified affecting right dominant side; N17.9 Acute kidney failure, unspecified; I48.92 Unspecified atrial flutter; R29.721 NIHSS score 21; R29.810 Facial weakness; I10 Essential (primary) hypertension; R47.81 Slurred speech; N28.89 Other specified disorders of kidney and ureter; I48.91 Unspecified atrial fibrillation; E11.9 Type 2 diabetes mellitus without complications; H40.9 Unspecified glaucoma; D72.829 Elevated white blood cell count, unspecified; K21.9 Gastro-esophageal reflux disease without esophagitis; R47.01 Aphasia; Z79.02 Long term (current) use of antithrombotics/antiplatelets; Z79.4 Long term (current) use of insulin; Z79.82 Long term (current) use of aspirin; Z79.84 Long term (current) use of oral hypoglycemic drugs; Z79.899 Other long term (current) drug therapy; Z86.73 Personal history of transient ischemic attack (TIA), and cerebral infarction without residual deficits
CPT/HCPCS: 36415; 70450; 70496; 70498; 70551; 72125; 76770; 80048; 80053; 80061; 83036; 84484; 85025; 85610; 85730; 86850; 86900; 86901; 93005; 93306; 96360; 99291